=== PATIENT | male | born 1955 | race Hispanic/Latino ===

== ENCOUNTER 2019-03-17 07:54 | Inpatient (IN) | payer SELFPAY ==
[~2019-03-17] VITALS: Ht 175.3 cm; Wt 61.6 kg
[2019-03-17] MEDS ORDERED: OXYCODONE/ACETAMIN 5/325MG TAB ONE (08:35)
[2019-03-17] MEDS ORDERED: ZOSYN 3.375GM+NS 50ML 50 ML IV ONE (08:35)
[2019-03-17 09:03] LABS: BASOPHILS % (AUTO) 0.6 % (0.0-5.0); EOSINOPHILS % (AUTO) 0.5 % (0.0-8.0); HEMATOCRIT 37.1 % (42-54); LYMPHOCYTES % (AUTO) 18.2 % (21.0-51.0); MEAN CORPUSCULAR HEMOGLOBIN 36.7 pg (27.0-33.0); MEAN CORPUSCULAR HGB CONC 34.5 g/dL (32.0-36.0); MEAN CORPUSCULAR VOLUME 106.5 fL (79-99); MONOCYTES % (AUTO) 7.6 % (3.0-13.0); NEUTROPHILS % (AUTO) 73.1 % (40.0-77.0); NUCLEATED RED BLOOD CELLS 0.1 % (0.0-0.19); PLATELET COUNT (AUTO) 65 K/uL (130-400); RED BLOOD CELL COUNT(AUTO) 3.48 MIL/uL (4.50-6.20); RED CELL DISTRIBUTION WIDTH 12.8 % (11.0-15.5); WHITE BLOOD COUNT (AUTO) 5.7 K/uL (4.8-10.8)
[2019-03-17 09:09] LABS: APPEARANCE,URINE Clear (CLEAR); BILIRUBIN,URINE Small (NEGATIVE); COLOR,URINE Orange (YELLOW); GLUCOSE, URINE (UA) >=1000 mg/dL (NEGATIVE); KETONES,URINE 15 mg/dL (NEGATIVE); LEUKOCYTE ESTERASE ,URINE Trace (NEGATIVE); NITRATE,URINE Negative (NEGATIVE); OCCULT BLOOD,URINE Negative (NEGATIVE); PH,URINE 5.5 (5.0-8.0); PROTEIN,URINE Negative (NEGATIVE)
[2019-03-17 09:13] LABS: INR 1.01 (0.85-1.15); PARTIAL THROMBOPLASTIN TIME 28.5 SEC (26.3-35.5); PROTHROMBIN TIME 10.6 SEC (9.6-11.6)
[2019-03-17 09:14] LABS: CREATININE 0.7 mg/dL (0.5-1.5); POTASSIUM 3.7 mmol/L (3.5-5.1)
[2019-03-17 09:16] LABS: BILIRUBIN,TOTAL 1.7 mg/dL (0.2-1.0); TOTAL PROTEIN, SERUM 7.4 g/dL (6.0-8.3)
[2019-03-17 09:22] LABS: BACTERIA,URINE Few /HPF (None Seen); COARSE GRANULAR CASTS,URINE 0-2 /LPF (None Seen); MUCUS,URINE Moderate LPF (None Seen); RBC,URINE 0-1 /HPF (0-1); SQUAMOUS EPITHELIAL CELL,UR 0-2 /HPF (0-2)
[2019-03-17 09:30] LABS: PLATELET MORPHOLOGY COMMENT DECREASED
[2019-03-17] MEDS ORDERED: MORPHINE SULFATE 4 MG/1ML SYG ONE (10:13)
[2019-03-17] MEDS: MEROPENEM 500 MG VIAL IV SCH ×2 (11:30→21:51)
[2019-03-17] MEDS ORDERED: HYDRALAZINE HCL 20 MG/ML VIAL IV PRN (11:30)
[2019-03-17] MEDS ORDERED: ONDANSETRON HCL 4 MG/2 ML VIAL IV PRN (11:30)
[2019-03-17] MEDS ORDERED: ACETAMINOPHEN 325 MG TAB PO PRN ×2 (11:30)
[2019-03-17] MEDS ORDERED: VANCOMYCIN PROTOCOL PER PHARMACY IV PRN (11:30)
[2019-03-17] MEDS ORDERED: VANCOMYCIN 1GM+NS 250ML 250 ML IV SCH (11:30)
[2019-03-17] MEDS ORDERED: COMPOUND IV REFRIGERATED 1 EACH IVSOLN MISC PRN (12:30)
[2019-03-17] MEDS ORDERED: MEROPENEM 500 MG VIAL ONE (13:00)
[2019-03-17] MEDS ORDERED: VANCOMYCIN 1GM+NS 250ML 250 ML IV ONE (13:00)
[2019-03-17] MEDS ORDERED: SODIUM CHLORIDE 0.9% 50 ML IV ONE (13:00)
[2019-03-17 13:50] VITALS: BP 152/92
[2019-03-17] MEDS: MORPHINE SULFATE 2 MG/ML 1ML SYG IV PRN (15:52)
[2019-03-17 16:41] VITALS: BP 151/85
[2019-03-17] MEDS ORDERED: TETANUS/DIPHTHERIA TOXOID [ADULT] 0.5 ML VIAL IM SCH (16:45)
[2019-03-17] MEDS: INSULIN HUMULIN R 100 UNIT/ML 3ML SQ SCH ×2 (17:26→21:59)
[2019-03-17 19:16] VITALS: BP 152/93
[2019-03-17] MEDS ORDERED: SODIUM CHLORIDE 0.9% 500ML 500 ML IV ONE (21:34)
[2019-03-17] MEDS: VANCOMYCIN 1.25 GM in SODIUM CHLORIDE 0.9% 250 ML IV SCH (23:17)
[2019-03-17 23:18] VITALS: BP 148/87
[2019-03-17] MEDS: INSULIN GLARGINE 100 UNITS/ML 10 ML VIAL SQ SCH (23:30)
[2019-03-18] VITALS (15 sets, daily range): BP systolic 121–145; BP diastolic 65–82
[2019-03-18 05:47] LABS: HEMATOCRIT 32.9 % (42-54); MEAN CORPUSCULAR HEMOGLOBIN 36.2 pg (27.0-33.0); MEAN CORPUSCULAR HGB CONC 34.6 g/dL (32.0-36.0); MEAN CORPUSCULAR VOLUME 104.8 fL (79-99); PLATELET COUNT (AUTO) 69 K/uL (130-400); RED BLOOD CELL COUNT(AUTO) 3.14 MIL/uL (4.50-6.20); RED CELL DISTRIBUTION WIDTH 13.1 % (11.0-15.5); WHITE BLOOD COUNT (AUTO) 4.5 K/uL (4.8-10.8)
[2019-03-18 06:02] LABS: CREATININE 0.7 mg/dL (0.5-1.5); CRP QUANTITATIVE 45.2 mg/L (0.00-9.0); POTASSIUM 4.1 mmol/L (3.5-5.1)
[2019-03-18 06:03] LABS: HEMOGLOBIN A1C 7.9 % (4.0-6.0)
[2019-03-18] MEDS: INSULIN HUMULIN R 100 UNIT/ML 3ML SQ SCH ×3 (06:09→20:23)
[2019-03-18] MEDS: MEROPENEM 500 MG VIAL IV SCH ×3 (06:26→19:31)
[2019-03-18 06:52] LABS: ERYTHROCYTE SEDIMENTATION RATE 48 MM/HR (0-20)
--- NOTE | 2019-03-18 08:26 | NUR ---
PATIENT UPDATE PT SEEN BY DR. WASHINGTON LAST NIGHT FOR CONSULT ON THE RT FOOT WOUND, PT SEEN AND EXAMINED. WOUND DRESSED WITH THE BETADINE CAST, ORDERED A SOFT TISSUE ULTRASOUND WELL MRI ON THE RT FOOT AND SCHEDULED PATIENT FOR DEBRIDEMENT OF THE RT FOOT AT 1400 TODAY, CONSENT SECURED. NO COMPLAINTS OF PAIN VOICED OUT, SLEPT WELL OVERNIGHT.
[2019-03-18] MEDS: ENOXAPARIN SODIUM 40 MG/0.4 ML SYRINGE SQ SCH (09:00)
[2019-03-18] MEDS: VANCOMYCIN 1.25 GM in SODIUM CHLORIDE 0.9% 250 ML IV SCH ×2 (10:02→21:59)
--- NOTE | 2019-03-18 13:38 | NUR ---
DCP CM met with pt discussed dc plans. Pt is independent prior to admission, lives at home with spouse. Denies any equipments/services. Pt feels safe to go back home, still drives, spouse able to assist with transportation and needs as necessary. DC plan to home once stable. CM to cont to follow up. Addendum: 03/18/19 at 1346 by MCKENZIE CASTRO LVN CM Amended: Links added.
[2019-03-18] MEDS ORDERED: LIDOCAINE HCL 1% 20 ML VIAL ONE (14:38)
[2019-03-18] MEDS ORDERED: BUPIVACAINE/PF 0.5% 30ML VIAL ONE (14:38)
[2019-03-18] MEDS ORDERED: MIDAZOLAM HCL 1 MG/ML 2ML VIAL ONE (14:45)
[2019-03-18] MEDS ORDERED: FENTANYL CITRATE PF 50 MCG/1 ML 2ML VIAL ONE (14:45)
[2019-03-18] MEDS ORDERED: PROPOFOL 10 MG/ML 20ML VIAL IV ONE (14:45)
--- NOTE | 2019-03-18 18:00 | NUR ---
STATUS POST PROCEDURE. PATIENT AWAKE AND ALERT. DENIES ANY PAIN OR DISCOMFORT. NO SIGNS OF BLEEDING NOTED
[2019-03-18] MEDS: MORPHINE SULFATE 2 MG/ML 1ML SYG IV PRN (19:31)
[2019-03-18] MEDS: INSULIN GLARGINE 100 UNITS/ML 10 ML VIAL SQ SCH (20:23)
[2019-03-19] MEDS: MEROPENEM 500 MG VIAL IV SCH ×3 (03:31→19:57)
[2019-03-19 04:00] VITALS: BP 123/72
[2019-03-19 04:55] LABS: BASOPHILS % (AUTO) 0.5 % (0.0-5.0); EOSINOPHILS % (AUTO) 1.2 % (0.0-8.0); HEMATOCRIT 28.4 % (42-54); LYMPHOCYTES % (AUTO) 27.6 % (21.0-51.0); MEAN CORPUSCULAR HEMOGLOBIN 37.9 pg (27.0-33.0); MEAN CORPUSCULAR HGB CONC 36.3 g/dL (32.0-36.0); MEAN CORPUSCULAR VOLUME 104.4 fL (79-99); MONOCYTES % (AUTO) 10.8 % (3.0-13.0); NEUTROPHILS % (AUTO) 59.9 % (40.0-77.0); NUCLEATED RED BLOOD CELLS 0.1 % (0.0-0.19); PLATELET COUNT (AUTO) 57 K/uL (130-400); RED BLOOD CELL COUNT(AUTO) 2.72 MIL/uL (4.50-6.20); WHITE BLOOD COUNT (AUTO) 4.4 K/uL (4.8-10.8)
[2019-03-19 05:00] LABS: CREATININE 0.6 mg/dL (0.5-1.5); POTASSIUM 3.7 mmol/L (3.5-5.1)
[2019-03-19] MEDS: VANCOMYCIN 1.25 GM in SODIUM CHLORIDE 0.9% 250 ML IV SCH ×3 (05:04→21:52)
[2019-03-19] MEDS: INSULIN HUMULIN R 100 UNIT/ML 3ML SQ SCH ×4 (06:21→20:19)
--- NOTE | 2019-03-19 07:45 | NUR ---
ASSESSMENT: RECEIVED RESTING IN BED WITH RT FOOD DRESSING D&I, FOOT ELEVATED DENIES PAIN, PEDAL PULSES PALPATED. EXPLAINED POC AND UNDERSTANDING VERBALIZED, CALL [place] AT HIS SIDE. IV FLUIDS NS AT 20MLS AN HR. SITE HEALTHY.
--- NOTE | 2019-03-19 07:59 | NUR ---
assessment: DR WASHINGTON HERE AND ASSESSED RT FOOT WOUND. REMOVED DRESSING AND DID DRESSING CHANGE, APPLIED BETADINE DRESSING. RECOMMENDATION TO USE CRUTCHES FOR AMB. PT VERBALIZES UNDERSTANDING. DENIES PAIN.
[2019-03-19 08:00] VITALS: BP 137/78
[2019-03-19] MEDS: ENOXAPARIN SODIUM 40 MG/0.4 ML SYRINGE SQ SCH (08:54)
[2019-03-19] MEDS: CADEXOMER IODINE 40 GM GEL TP SCH (09:00)
[2019-03-19 11:52] VITALS: BP 132/74
--- NOTE | 2019-03-19 12:34 | NUR ---
ACTIVITY: PT PERSONNEL HERE TO WORK WITH PT ON CRUTCHES FOR AMB.
--- NOTE | 2019-03-19 12:40 | NUR ---
PT : PT PERSONNEL HERE WALKING PT IN HALLWAY WITH THE CRUTCHES.
--- NOTE | 2019-03-19 14:40 | NUR ---
ACTIVITY: AMB TO BR WITH CRUTCHES, STEADY GAIT.
[2019-03-19 16:00] VITALS: BP 166/102
--- NOTE | 2019-03-19 17:00 | NUR ---
HYGEINE: TOOK SHOWER.
--- NOTE | 2019-03-19 17:39 | NUR ---
ACTIVITY: AMB IN HALLWAY WITH CRUTCHES.
[2019-03-19 19:00] VITALS: BP 143/83
[2019-03-19] MEDS: INSULIN GLARGINE 100 UNITS/ML 10 ML VIAL SQ SCH (20:20)
[2019-03-20] VITALS (7 sets, daily range): BP systolic 120–158; BP diastolic 60–85
[2019-03-20] MEDS: MEROPENEM 500 MG VIAL IV SCH ×3 (03:15→22:16)
[2019-03-20] MEDS: VANCOMYCIN 1.25 GM in SODIUM CHLORIDE 0.9% 250 ML IV SCH ×3 (05:19→23:37)
[2019-03-20 05:44] LABS: BASOPHILS % (AUTO) 0.8 % (0.0-5.0); EOSINOPHILS % (AUTO) 1.5 % (0.0-8.0); HEMATOCRIT 28.6 % (42-54); LYMPHOCYTES % (AUTO) 32.7 % (21.0-51.0); MEAN CORPUSCULAR HGB CONC 35.6 g/dL (32.0-36.0); MEAN CORPUSCULAR VOLUME 103.8 fL (79-99); PLATELET COUNT (AUTO) 69 K/uL (130-400); RED BLOOD CELL COUNT(AUTO) 2.76 MIL/uL (4.50-6.20); RED CELL DISTRIBUTION WIDTH 12.8 % (11.0-15.5); WHITE BLOOD COUNT (AUTO) 3.5 K/uL (4.8-10.8)
[2019-03-20 05:56] LABS: CREATININE 0.6 mg/dL (0.5-1.5); POTASSIUM 3.6 mmol/L (3.5-5.1)
[2019-03-20] MEDS: INSULIN HUMULIN R 100 UNIT/ML 3ML SQ SCH ×4 (05:57→20:32)
--- NOTE | 2019-03-20 07:30 | NUR ---
DR. WASHINGTON HERE AND CHANGED HIS DRSG TO HIS RT FOOT WITH DR. ROMERO TO CONT ,CARE. TOLERATE WELL AND CALL LIGHT IN RE ACH.
[2019-03-20] MEDS: ENOXAPARIN SODIUM 40 MG/0.4 ML SYRINGE SQ SCH (08:46)
[2019-03-20] MEDS: CADEXOMER IODINE 40 GM GEL TP SCH (08:46)
--- NOTE | 2019-03-20 14:00 | NUR ---
ACTIVITY, PT UP AMBULATING , WELL . WITH NO WEIGHT BEARING TO HIS RT FOOT. DENIES ANY PAIN . CALL LIGHT IN REACH..
[2019-03-20] MEDS: INSULIN GLARGINE 100 UNITS/ML 10 ML VIAL SQ SCH (22:14)
[2019-03-21] MEDS: MEROPENEM 500 MG VIAL IV SCH ×3 (03:34→19:58)
[2019-03-21 04:07] VITALS: BP 131/61
[2019-03-21] MEDS: INSULIN HUMULIN R 100 UNIT/ML 3ML SQ SCH ×4 (05:34→20:35)
[2019-03-21] MEDS: VANCOMYCIN 1.25 GM in SODIUM CHLORIDE 0.9% 250 ML IV SCH ×3 (05:39→22:41)
[2019-03-21 06:07] LABS: HEMATOCRIT 26.9 % (42-54); MEAN CORPUSCULAR HEMOGLOBIN 38.1 pg (27.0-33.0); MEAN CORPUSCULAR HGB CONC 36.6 g/dL (32.0-36.0); MEAN CORPUSCULAR VOLUME 104.2 fL (79-99); NUCLEATED RED BLOOD CELLS 0.1 % (0.0-0.19); PLATELET COUNT (AUTO) 67 K/uL (130-400); RED BLOOD CELL COUNT(AUTO) 2.58 MIL/uL (4.50-6.20); RED CELL DISTRIBUTION WIDTH 13.1 % (11.0-15.5)
[2019-03-21 06:13] LABS: CREATININE 0.6 mg/dL (0.5-1.5); POTASSIUM 3.7 mmol/L (3.5-5.1)
[2019-03-21 07:07] LABS: BASOPHILS % (MANUAL) 2 % (0-2); EOSINOPHILS % (MANUAL) 1 % (1-6); LYMPHOCYTES % (MANUAL) 30 % (22-44); MAN.DIFF COMMENT-IMPRESSION MANUAL DIFFERENTIAL; MONOCYTES % (MANUAL) 13 % (2-9); PLATELET MORPHOLOGY COMMENT DECREASED; SEGMENTED NEUTROPHILS % 54 % (40-70)
[2019-03-21 07:30] VITALS: BP 143/75
[2019-03-21] MEDS: CADEXOMER IODINE 40 GM GEL TP SCH (09:00)
[2019-03-21] MEDS: ENOXAPARIN SODIUM 40 MG/0.4 ML SYRINGE SQ SCH (09:00)
[2019-03-21 11:00] VITALS: BP 145/77
--- NOTE | 2019-03-21 14:46 | NUR ---
CM Note: dcp to home; pt given crutches by PT CM met w/pt, tolerating ambulation w/crutches. PT provided pt w/own crutches. Safe to dc to home once MD clears. dcp to home w/spouse. Primary nurse aware. CM to cont to follow up.
[2019-03-21 16:00] VITALS: BP 147/76
--- NOTE | 2019-03-21 18:20 | NUR ---
DR. SHEARER HERE AND ASSESS HIS RT FOOT DRSG. WAS REMOVED AND PACKING, AND CLEANSE WITH THE SALINE. AND APPLICATION OF BETADINE CAST , SOAK APPLICATION ON , AND SECURE WITH KERLIX . AND WRAP WITH THE A CE WRAP. TOLERATE WELL, EDUCATION TEACH WAS PROVIDE TO AT THE BEDSIDE, .. PT UNDERSTOOD PLAN OF CARE AND DRSG CHANGES WILL BE DONE AT HOME, WANTS HE IS DISCHARGE HOME, QUESTION REVIEW .. TOLERATE WELL, CALL LIGHT INREACH
[2019-03-21 20:00] VITALS: BP 152/76
[2019-03-21] MEDS: INSULIN GLARGINE 100 UNITS/ML 10 ML VIAL SQ SCH (20:51)
[2019-03-22] VITALS: BP 121/65
[2019-03-22 04:00] VITALS: BP 138/79
[2019-03-22] MEDS: MEROPENEM 500 MG VIAL IV SCH ×3 (04:39→20:43)
[2019-03-22] MEDS: INSULIN HUMULIN R 100 UNIT/ML 3ML SQ SCH ×4 (05:30→20:42)
[2019-03-22] MEDS: VANCOMYCIN 1.25 GM in SODIUM CHLORIDE 0.9% 250 ML IV SCH ×2 (05:55→15:08)
[2019-03-22 07:50] VITALS: BP 139/71
[2019-03-22] MEDS: ENOXAPARIN SODIUM 40 MG/0.4 ML SYRINGE SQ SCH (09:00)
[2019-03-22] MEDS: CADEXOMER IODINE 40 GM GEL TP SCH (09:00)
[2019-03-22 11:36] VITALS: BP 143/68
[2019-03-22 16:20] VITALS: BP 153/77
--- NOTE | 2019-03-22 17:00 | NUR ---
AT THE BEDSIDE FOR DRSG CHANGE TO HIS RT FOOT . DRSG REMOVED . AND SITE CLEANSE WITH THE SALINE, PAD DRY WITH THE GAUZE, AND PACK IN WITH THE BEDATINE, GAUZE SOAK AN SECURE DSRG WITH THE KERLIX WRAP,AND SECURE WITHTHE REENA BANDAGE . NOTED NO FOUL SMELLING . GOOD PINK TISSUE, WAS ABLE TO COMPLETE DRSG WELL, , QUESTION, EDUCATIONS REVIEW. PT TOLERATE WELL, CALLL LIGHT IN REACH.
[2019-03-22 20:00] VITALS: BP 146/76
[2019-03-22] MEDS: INSULIN GLARGINE 100 UNITS/ML 10 ML VIAL SQ SCH (20:49)
[2019-03-22] MEDS: VANCOMYCIN 1.5 GM in SODIUM CHLORIDE 0.9% 250 ML IV SCH (20:54)
[2019-03-23] VITALS: BP 136/83
[2019-03-23] MEDS: MEROPENEM 500 MG VIAL IV SCH ×2 (04:00→12:02)
[2019-03-23 04:08] VITALS: BP 132/71
[2019-03-23] MEDS: VANCOMYCIN 1.5 GM in SODIUM CHLORIDE 0.9% 250 ML IV SCH ×2 (04:10→13:18)
[2019-03-23] MEDS: INSULIN HUMULIN R 100 UNIT/ML 3ML SQ SCH ×2 (05:52→11:30)
[2019-03-23 06:07] LABS: MEAN CORPUSCULAR HEMOGLOBIN 37.4 pg (27.0-33.0); MEAN CORPUSCULAR HGB CONC 36.3 g/dL (32.0-36.0); NUCLEATED RED BLOOD CELLS 0.1 % (0.0-0.19); PLATELET COUNT (AUTO) 78 K/uL (130-400); RED BLOOD CELL COUNT(AUTO) 2.52 MIL/uL (4.50-6.20); RED CELL DISTRIBUTION WIDTH 12.9 % (11.0-15.5); WHITE BLOOD COUNT (AUTO) 2.7 K/uL (4.8-10.8)
[2019-03-23 06:23] LABS: CREATININE 0.6 mg/dL (0.5-1.5); POTASSIUM 3.4 mmol/L (3.5-5.1)
[2019-03-23] MEDS: CADEXOMER IODINE 40 GM GEL TP SCH (07:06)
[2019-03-23 07:11] LABS: BAND NEUTROPHILS % (MANUAL) 1 % (0-2); LYMPHOCYTES % (MANUAL) 38 % (22-44); MAN.DIFF COMMENT-IMPRESSION MANUAL DIFFERENTIAL; MONOCYTES % (MANUAL) 8 % (2-9); PLATELET MORPHOLOGY COMMENT SLIGHTLY DECREASED; SEGMENTED NEUTROPHILS % 53 % (40-70)
[2019-03-23 08:00] VITALS: BP 125/83
--- NOTE | 2019-03-23 09:30 | NUR ---
DR. SHEARER HERE AND ASSESS HIS RT FOOT . WOUND, CONT WITH CARE. AND NO CHANGES PT TO FOLLOW WITH HIM AT [facility] DR. SHEARER THERE Q THU . OF EACH .WEEK
[2019-03-23 11:59] VITALS: BP 125/63
[2019-03-23] MEDS: ENOXAPARIN SODIUM 40 MG/0.4 ML SYRINGE SQ SCH (12:01)
[2019-03-23 16:00] VITALS: BP 141/64
--- NOTE | 2019-03-23 17:25 | NUR ---
PT DISCHARGE SUMMARY WAS REVIEW ,WITH PT. AND , ALREADY WAS ABLE TO DO THE WOUND , CARE DRSG. REFRESH,,, EDUCATIONS . ALSO. TO FOLLOW WITH DR. SHEARER THE FOOT DR. THAT DID THE SURGERY,, , EDUCATION ALSO ON DIABETIC, TEACHING, AND CARE. AND DIET,, ALSO PT WAS PROVIDED WITH DISCHARGE ANTIBOTICS GIVEN TO PT PER DR WILLSON, . SL TO HIS LFA WAS DC WITH NO REDNESS TO SITE ,AND A SM DRSG APPLICATION ON . . RT FOOT . WAS REMOVED AND WOUND PICTURES DONE, AND DSRG TEACHING WAS ADRESS AND WAS DID THE DRSG . DONE WELL. .
== END 2019-03-23 17:35 | disposition home or self-care (01) | DRG 571 ==
LOC: EDH 07:54 → EDHIP 07:55 → 3BH 13:33
PROVIDERS: ADMIT Internal Medicine; ATTEND Internal Medicine
PROC: 3E0234Z Introduction of Serum, Toxoid and Vaccine into Muscle, Percutaneous Approach (ICD-10-PCS; 2019-03-17)
PROC: 0JBQ0ZZ Excision of Right Foot Subcutaneous Tissue and Fascia, Open Approach (ICD-10-PCS; principal; 2019-03-18 14:45)
DX: S91.331A Puncture wound without foreign body, right foot, initial encounter (principal); E87.1 Hypo-osmolality and hyponatremia; L02.611 Cutaneous abscess of right foot; L03.115 Cellulitis of right lower limb; D69.6 Thrombocytopenia, unspecified; E11.42 Type 2 diabetes mellitus with diabetic polyneuropathy; E11.621 Type 2 diabetes mellitus with foot ulcer; E78.2 Mixed hyperlipidemia; I10 Essential (primary) hypertension; L97.529 Non-pressure chronic ulcer of other part of left foot with unspecified severity; Z91.19 Patient's noncompliance with other medical treatment and regimen; L97.519 Non-pressure chronic ulcer of other part of right foot with unspecified severity; B95.1 Streptococcus, group B, as the cause of diseases classified elsewhere; W45.0XXA Nail entering through skin, initial encounter; Y93.89 Activity, other specified; Y92.89 Other specified places as the place of occurrence of the external cause; Y99.8 Other external cause status; Z23 Encounter for immunization
CPT/HCPCS: 36415; 71045; 73630; 73718; 76882; 80048; 80053; 80061; 80202; 81001; 82948; 83036; 85025; 85027; 85610; 85651; 85730; 86140; 87070; 87076; 87077; 87186; 87205; 90714; 93005; 93925; G0378; J1650; J1815; J2185; J2250; J2270; J2543; J2704; J3010; J3370; J3490; J7030; J7040

== ENCOUNTER 2019-06-20 08:43 | Inpatient (IN) | payer OTHER ==
[2019-06-20] VITALS (7 sets, daily range): BP systolic 107–145; BP diastolic 55–88
[~2019-06-20] VITALS: Ht 167.6 cm; Wt 68.0 kg
[2019-06-20 09:20] LABS: BASOPHILS % (AUTO) 0.6 % (0.0-5.0); EOSINOPHILS % (AUTO) 0.2 % (0.0-8.0); HEMATOCRIT 41.2 % (42-54); LYMPHOCYTES % (AUTO) 18.3 % (21.0-51.0); MEAN CORPUSCULAR HEMOGLOBIN 35.8 pg (27.0-33.0); MEAN CORPUSCULAR HGB CONC 35.6 g/dL (32.0-36.0); MEAN CORPUSCULAR VOLUME 100.5 fL (79-99); MONOCYTES % (AUTO) 5.9 % (3.0-13.0); NUCLEATED RED BLOOD CELLS 0.2 % (0.0-0.19); PLATELET COUNT (AUTO) 59 K/uL (130-400); RED BLOOD CELL COUNT(AUTO) 4.09 MIL/uL (4.50-6.20); RED CELL DISTRIBUTION WIDTH 14.2 % (11.0-15.5); WHITE BLOOD COUNT (AUTO) 4.4 K/uL (4.8-10.8)
[2019-06-20] MEDS ORDERED: SODIUM CHLORIDE 0.9% 1000ML 1,000 ML IV ONE (09:22)
[2019-06-20] MEDS ORDERED: DILTIAZEM HCL 125 MG/25 ML VIAL IV ONE ×2 (09:22→09:30)
[2019-06-20 09:45] LABS: INR 1.23 (0.85-1.15); PARTIAL THROMBOPLASTIN TIME 25.5 SEC (26.3-35.5); PROTHROMBIN TIME 12.9 SEC (9.6-11.6)
[2019-06-20 10:07] LABS: MAGNESIUM 1.5 mg/dL (1.80-2.40)
[2019-06-20 10:18] LABS: CREATININE 0.9 mg/dL (0.5-1.5); POTASSIUM 5.1 mmol/L (3.5-5.1)
[2019-06-20] MEDS ORDERED: LORAZEPAM 2 MG/ML 1 ML VIAL ONE (10:38)
[2019-06-20] MEDS ORDERED: MAGNESIUM 2GM PREMIX 50ML 50 ML IV ONE (10:45)
[2019-06-20] MEDS ORDERED: DEXTROSE 50%-WATER 50 ML DISP.SYRIN IV PRN (11:30)
[2019-06-20] MEDS ORDERED: ONDANSETRON HCL 4 MG/2 ML VIAL IV PRN (11:30)
[2019-06-20] MEDS ORDERED: PHARMACY COMMUNICATION MISC PRN (11:30)
[2019-06-20] MEDS ORDERED: PROMETHAZINE HCL 25 MG TABLET PO PRN (11:30)
[2019-06-20] MEDS ORDERED: LORAZEPAM 2 MG/ML 1 ML VIAL IVP PRN (11:30)
[2019-06-20] MEDS ORDERED: GLUCAGON 1MG KIT 1 MG ML IM PRN (11:30)
[2019-06-20] MEDS ORDERED: DILTIAZEM HCL 125 MG/25 ML 125 MG in SODIUM CHLORIDE 0.9% 100 ML IV SCH (11:30)
[2019-06-20 12:10] LABS: ALBUMIN 3.8 g/dL (3.5-5.0); BILIRUBIN,DIRECT 0.5 mg/dL (0.0-0.3); BILIRUBIN,TOTAL 2.4 mg/dL (0.2-1.0); TOTAL PROTEIN, SERUM 7.9 g/dL (6.0-8.3)
[2019-06-20] MEDS ORDERED: DILTIAZEM HCL 60 MG TABLET ONE (12:23)
[2019-06-20] MEDS ORDERED: FAMOTIDINE 20MG TAB 20 MG TAB ONE (12:23)
[2019-06-20] MEDS ORDERED: ENOXAPARIN SODIUM 100 MG/1 ML SQ ONE (12:23)
--- NOTE | 2019-06-20 13:30 | NUR ---
ADMIT Received pt from Ed, report given by XU Lindsey. Awake, alert, and oriented x3. Denies any shortness of breath. Cardizem infusing at 15mg/hr, Banana bag at 100cc/hr as ordered. Instructed on use of call light for any assistance, verbalized understanding. Spouse at bedside.
[2019-06-20 14:01] LABS: AMPHET/METH SCREEN,URINE NEGATIVE (NEGATIVE); BARBITURATE SCREEN, URINE NEGATIVE (NEGATIVE); BENZODIAZEPINES SCREEN,URINE NEGATIVE (NEGATIVE); CANNABINOID SCREEN,URINE NEGATIVE (NEGATIVE); COCAINE SCREEN,URINE NEGATIVE (NEGATIVE); OPIATE SCREEN,URINE NEGATIVE (NEGATIVE); PHENCYCLIDINE SCREEN,URINE NEGATIVE (NEGATIVE)
[2019-06-20] MEDS ORDERED: GLIP5TAB11 PO (14:13)
[2019-06-20] MEDS ORDERED: METF-446 PO (14:13)
[2019-06-20] MEDS ORDERED: CHLORDIAZEPOXIDE HCL 25 MG CAP PO SCH (14:30)
[2019-06-20] MEDS: THIAMINE HCL 100 MG, FOLIC ACID 1 MG, M.V.I. IV [ADULT] 10 ML in SODIUM CHLORIDE 0.9% 1... IV SCH (16:45)
[2019-06-20] MEDS: INSULIN HUMULIN R 100 UNIT/ML 3ML SQ SCH ×2 (16:48→21:00)
--- NOTE | 2019-06-20 17:15 | NUR ---
MD VISIT Dr. Montero in to see pt, new orders received and will carry out.
[2019-06-20] MEDS ORDERED: PNEUMOCOCCAL VACCINE POLYVALENT 0.5 ML/VIAL [PPV] IM SCH (17:45)
[2019-06-20] MEDS ORDERED: FLU VACC QS2019-20 36MOS UP/PF 60 MCG/0.5 ML ML IM SCH (17:45)
[2019-06-20] MEDS: METFORMIN HCL 500 MG TABLET PO SCH (17:51)
[2019-06-20] MEDS: DILTIAZEM HCL 60 MG TABLET PO SCH ×2 (17:53→20:16)
[2019-06-20] MEDS: FAMOTIDINE/PF 20 MG/2 ML VIAL IV SCH (20:15)
[2019-06-21] VITALS (7 sets, daily range): BP systolic 101–126; BP diastolic 56–71
[2019-06-21] MEDS: LORAZEPAM 2 MG/ML 1 ML VIAL IVP PRN (03:49)
--- NOTE | 2019-06-21 03:52 | NUR ---
Pt. c/o of being restless and agitated,PRN Ativan 0.5 mg IV given. to bedside.Will continue to monitor pt.
[2019-06-21 04:59] LABS: BASOPHILS % (AUTO) 0.6 % (0.0-5.0); EOSINOPHILS % (AUTO) 2.1 % (0.0-8.0); HEMATOCRIT 31.7 % (42-54); LYMPHOCYTES % (AUTO) 36.5 % (21.0-51.0); MEAN CORPUSCULAR HEMOGLOBIN 36.4 pg (27.0-33.0); MEAN CORPUSCULAR HGB CONC 36.3 g/dL (32.0-36.0); MEAN CORPUSCULAR VOLUME 100.3 fL (79-99); MONOCYTES % (AUTO) 7.7 % (3.0-13.0); NEUTROPHILS % (AUTO) 53.1 % (40.0-77.0); NUCLEATED RED BLOOD CELLS 0.1 % (0.0-0.19); PLATELET COUNT (AUTO) 36 K/uL (130-400); RED BLOOD CELL COUNT(AUTO) 3.16 MIL/uL (4.50-6.20); RED CELL DISTRIBUTION WIDTH 14.1 % (11.0-15.5); WHITE BLOOD COUNT (AUTO) 2.4 K/uL (4.8-10.8)
[2019-06-21] MEDS ORDERED: CHLORDIAZEPOXIDE HCL 25 MG CAP PO ONE (05:00)
[2019-06-21 05:24] LABS: ALBUMIN 2.7 g/dL (3.5-5.0); BILIRUBIN,TOTAL 2.6 mg/dL (0.2-1.0); CREATININE 0.6 mg/dL (0.5-1.5); TOTAL PROTEIN, SERUM 5.9 g/dL (6.0-8.3)
[2019-06-21 05:27] LABS: POTASSIUM 2.7 mmol/L (3.5-5.1)
[2019-06-21 05:53] LABS: BASOPHILS % (MANUAL) 2 % (0-2); EOSINOPHILS % (MANUAL) 2 % (1-6); LYMPHOCYTES % (MANUAL) 48 % (22-44); MAN.DIFF COMMENT-IMPRESSION MANUAL DIFFERENTIAL; MONOCYTES % (MANUAL) 3 % (2-9); SEGMENTED NEUTROPHILS % 45 % (40-70)
[2019-06-21 05:55] LABS: PLATELET MORPHOLOGY COMMENT MARKED DECREASE
[2019-06-21] MEDS ORDERED: POTASSIUM CHLORIDE 20 MEQ ERTAB PO PRN (06:00)
--- NOTE | 2019-06-21 06:00 | NUR ---
Cardizem drip weaned off and pt already started on Cardizem tablet.Pt. is in and out afib in the 70's.Pt. remained stable, denies chest pain,palpitation and shortness of breath.
[2019-06-21] MEDS ORDERED: POTASSIUM CHLORIDE 20 MEQ ERTAB PO ONE (06:02)
[2019-06-21] MEDS: DILTIAZEM HCL 60 MG TABLET PO SCH ×2 (06:06→13:08)
[2019-06-21] MEDS: INSULIN HUMULIN R 100 UNIT/ML 3ML SQ SCH ×4 (06:13→21:46)
[2019-06-21] MEDS: FAMOTIDINE/PF 20 MG/2 ML VIAL IV SCH ×2 (08:29→21:56)
[2019-06-21] MEDS: GLIPIZIDE 5 MG TABLET PO SCH (08:29)
[2019-06-21] MEDS: METFORMIN HCL 500 MG TABLET PO SCH ×2 (08:29→16:54)
[2019-06-21] MEDS: ENOXAPARIN SODIUM 80 MG/0.8 ML SQ SCH (08:30)
[2019-06-21] MEDS ORDERED: DILTIAZEM HCL 60 MG TABLET PO SCH (09:00)
[2019-06-21] MEDS: THIAMINE HCL 100 MG, FOLIC ACID 1 MG, M.V.I. IV [ADULT] 10 ML in SODIUM CHLORIDE 0.9% 1... IV SCH (11:42)
[2019-06-21] MEDS: CHLORDIAZEPOXIDE HCL 25 MG CAP PO PRN (12:12)
--- NOTE | 2019-06-21 16:22 | NUR ---
DCP CM met with pt discussed dc plans. Pt is independent prior to admission, lives at home with spouse. Pt states he has crutches he uses on ambulation. Denies any equipments/services. Pt feels safe to go back home, spouse able to assist with transportation and needs as necessary. DC plan to home once stable. CM to cont to follow up. Addendum: 06/21/19 at 1623 by MCKENZIE CASTRO LVN CM Amended: Links added.
[2019-06-22 04:03] VITALS: BP 115/69
[2019-06-22] MEDS: CHLORDIAZEPOXIDE HCL 25 MG CAP PO PRN ×2 (05:17→08:04)
[2019-06-22 05:53] LABS: HEMATOCRIT 34.2 % (42-54); MEAN CORPUSCULAR HEMOGLOBIN 35.6 pg (27.0-33.0); MEAN CORPUSCULAR HGB CONC 34.7 g/dL (32.0-36.0); MEAN CORPUSCULAR VOLUME 102.5 fL (79-99); NUCLEATED RED BLOOD CELLS 0.1 % (0.0-0.19); PLATELET COUNT (AUTO) 37 K/uL (130-400); RED BLOOD CELL COUNT(AUTO) 3.34 MIL/uL (4.50-6.20)
[2019-06-22 06:12] LABS: CREATININE 0.7 mg/dL (0.5-1.5); MAGNESIUM 1.2 mg/dL (1.80-2.40)
[2019-06-22 06:15] LABS: POTASSIUM 2.9 mmol/L (3.5-5.1)
[2019-06-22] MEDS ORDERED: MAGNESIUM 2GM PREMIX 50ML 50 ML IV ONE (06:29)
[2019-06-22] MEDS: INSULIN HUMULIN R 100 UNIT/ML 3ML SQ SCH ×4 (06:36→21:00)
[2019-06-22 07:30] VITALS: BP 118/71
[2019-06-22] MEDS: METFORMIN HCL 500 MG TABLET PO SCH ×2 (07:53→16:04)
[2019-06-22] MEDS: GLIPIZIDE 5 MG TABLET PO SCH (07:54)
[2019-06-22] MEDS: ENOXAPARIN SODIUM 80 MG/0.8 ML SQ SCH (07:58)
[2019-06-22] MEDS: FAMOTIDINE 20MG TAB 20 MG TAB PO SCH ×2 (08:04→20:59)
[2019-06-22 08:12] LABS: HEPATITIS A ANTIBODY IGM Negative (Negative); HEPATITIS B CORE IGM Negative (Negative); HEPATITIS Bs ANTIGEN SCREEN P Negative (Negative)
[2019-06-22] MEDS: METOPROLOL TARTRATE 50 MG TAB PO SCH ×3 (08:45→20:59)
[2019-06-22] MEDS ORDERED: DILTIAZEM HCL 180 MG CAP.SR.24H PO SCH (09:00)
[2019-06-22] MEDS: MAGNESIUM 2GM PREMIX 50ML 50 ML IV PRN (09:29)
[2019-06-22] MEDS: POTASSIUM CHLORIDE 10% ELIXIR 20 MEQ/15 ML UDCUP PO PRN ×3 (09:30→14:04)
[2019-06-22 11:00] VITALS: BP 122/78
[2019-06-22] MEDS: THIAMINE HCL 100 MG, FOLIC ACID 1 MG, M.V.I. IV [ADULT] 10 ML in SODIUM CHLORIDE 0.9% 1... IV SCH (11:27)
[2019-06-22] MEDS: POTASSIUM CHLORIDE 20MEQ/100ML 100 ML IV PRN (14:04)
[2019-06-22] MEDS: LIDOCAINE HCL-MPF 1% 2ML VIAL IV PRN (14:05)
[2019-06-22 16:00] VITALS: BP 120/60
[2019-06-22 19:40] VITALS: BP 120/56
[2019-06-22] MEDS: LORAZEPAM 2 MG/ML 1 ML VIAL IVP PRN (21:05)
[2019-06-22 23:35] VITALS: BP 101/62
[2019-06-23 04:00] VITALS: BP 103/53
[2019-06-23 04:44] LABS: CREATININE 0.7 mg/dL (0.5-1.5); MAGNESIUM 1.7 mg/dL (1.80-2.40); POTASSIUM 3.7 mmol/L (3.5-5.1)
[2019-06-23] MEDS: METOPROLOL TARTRATE 50 MG TAB PO SCH (05:35)
[2019-06-23] MEDS: POTASSIUM CHLORIDE 20MEQ/100ML 100 ML IV PRN (06:49)
[2019-06-23] MEDS: LIDOCAINE HCL-MPF 1% 2ML VIAL IV PRN (06:50)
[2019-06-23] MEDS: INSULIN HUMULIN R 100 UNIT/ML 3ML SQ SCH ×3 (06:52→16:30)
[2019-06-23 07:45] VITALS: BP 111/87
[2019-06-23] MEDS: FAMOTIDINE 20MG TAB 20 MG TAB PO SCH (08:49)
[2019-06-23] MEDS: GLIPIZIDE 5 MG TABLET PO SCH (08:49)
[2019-06-23] MEDS: METFORMIN HCL 500 MG TABLET PO SCH ×2 (08:49→16:39)
[2019-06-23] MEDS: POTASSIUM CHLORIDE 10% ELIXIR 20 MEQ/15 ML UDCUP PO PRN ×2 (08:50→11:35)
[2019-06-23] MEDS: ENOXAPARIN SODIUM 80 MG/0.8 ML SQ SCH (09:00)
[2019-06-23] MEDS ORDERED: METOPROLOL TARTRATE 50 MG TAB PO SCH (09:30)
[2019-06-23 11:02] VITALS: BP 125/70
[2019-06-23] MEDS: MAGNESIUM 2GM PREMIX 50ML 50 ML IV PRN ×2 (11:36→14:20)
[2019-06-23 16:00] VITALS: BP 121/62
[2019-06-23] MEDS ORDERED: FURO20TA4 PO (16:18)
[2019-06-23] MEDS ORDERED: METO50 PO (16:18)
[2019-06-23] MEDS ORDERED: PANT40TA25 PO (16:18)
--- NOTE | 2019-06-23 18:23 | NUR ---
MD NOTIFICATION DR Jabier ARCOS NOTIFIED OF CT ABD RESULTS. ORDER RECEIVED & ENTERED TO DC PT HOME.
--- NOTE | 2019-06-23 18:35 | NUR ---
DISCHARGE VERBAL & WRITTEN DISCHARGE INSTRUCTIONS REVIEWED & GIVEN TO PT & SPOUSE. QUESTIONS ENCOURAGED & CLARIFIED. PROPER CARE & MGT OF AFIB REVIEWED. ALCOHOL ABUSE & WITHDRAWAL REVIEWED. NEW PRESCRIBED MEDICATIONS REVIEWED. PRESCRIPTION GIVEN TO PT. SIGNED PRESCRIPTION PLACED IN CHART. F/U OFFICE INFO & APPT INFO REVIEWED W/PT. TELE WILBER REMOVED EARLIER. IV DISCONTINUED. PT & SPOUSE TO GATHER PERSONAL BELONGINGS. WILL NOTIFY STAFF WHEN READY TO BE TAKEN TO PRIVATE VEHICLE.
--- NOTE | 2019-06-23 19:00 | NUR ---
DISCHARGE PT TAKEN TO PRIVATE VEHICLE VIA WC BY KATE PCP, ACCOMPANIED BY SPOUSE. NO DISTRESS NOTED.
== END 2019-06-23 19:00 | disposition home or self-care (01) | DRG 309 ==
LOC: EDH 08:43 → OBSVTOIN 08:44 → EDHIP 08:44 → 4CH 13:13
PROVIDERS: ADMIT Family Medicine; ATTEND Family Medicine
PROC: 3E0234Z Introduction of Serum, Toxoid and Vaccine into Muscle, Percutaneous Approach (ICD-10-PCS; principal; 2019-06-20)
PROC: 3E02340 Introduction of Influenza Vaccine into Muscle, Percutaneous Approach (ICD-10-PCS; 2019-06-20)
DX: I48.91 Unspecified atrial fibrillation (principal); F10.239 Alcohol dependence with withdrawal, unspecified; D61.818 Other pancytopenia; D68.9 Coagulation defect, unspecified; L03.115 Cellulitis of right lower limb; E83.42 Hypomagnesemia; E11.65 Type 2 diabetes mellitus with hyperglycemia; E11.51 Type 2 diabetes mellitus with diabetic peripheral angiopathy without gangrene; E56.9 Vitamin deficiency, unspecified; E78.2 Mixed hyperlipidemia; E87.6 Hypokalemia; F32.9 Major depressive disorder, single episode, unspecified; F41.9 Anxiety disorder, unspecified; I42.9 Cardiomyopathy, unspecified; K76.9 Liver disease, unspecified; R26.2 Difficulty in walking, not elsewhere classified; D64.9 Anemia, unspecified; Z23 Encounter for immunization
CPT/HCPCS: 36415; 71045; 74150; 80048; 80053; 80074; 80076; 80305; 82140; 82550; 82607; 82746; 82948; 83690; 83735; 83880; 84425; 84445; 84484; 85025; 85027; 85610; 85730; 90732; 93005; 93306; 99291; G0378; G0480; J1650; J1815; J2060; J3411; J3475; J3480; J3490; J7030; Q2035

== ENCOUNTER 2019-09-23 23:50 | Emergency (ER) | payer OTHER ==
[~2019-09-23 23:50] MED LIST: FURO20TA4 PO; GLIP5TAB11 PO; METF-446 PO; METO50 PO; PANT40TA25 PO
[2019-09-24] MEDS ORDERED: KETOROLAC TROMETHAMINE 30MG/ML ONE (01:03)
[2019-09-24] MEDS ORDERED: HYDROCODONE/ACETAMINOPHEN 10/325 MG TAB ONE (02:40)
== END 2019-09-24 03:22 | disposition home or self-care (01) ==
LOC: EDH 23:50
DX: S92.902A Unspecified fracture of left foot, initial encounter for closed fracture (principal); S43.402A Unspecified sprain of left shoulder joint, initial encounter; E11.9 Type 2 diabetes mellitus without complications; Z98.890 Other specified postprocedural states; V19.9XXA Pedal cyclist (driver) (passenger) injured in unspecified traffic accident, initial encounter; Y93.I9 Activity, other involving external motion; Y92.89 Other specified places as the place of occurrence of the external cause; Y99.8 Other external cause status
CPT/HCPCS: 29515; 73030; 73610; 73630; 96372; 99284; J1885

== ENCOUNTER 2019-09-30 22:20 | Inpatient (IN) | payer OTHER ==
[~2019-09-30] VITALS: Ht 175.3 cm; Wt 74.1 kg
[2019-09-30] MEDS ORDERED: CEFTRIAXONE SODIUM 2 GM VIAL ONE (23:00)
[2019-09-30] MEDS ORDERED: SODIUM CHLORIDE 0.9% 1000ML 1,000 ML IV ONE (23:01)
[2019-09-30 23:06] LABS: BASOPHILS % (AUTO) 0.1 % (0.0-5.0); EOSINOPHILS % (AUTO) 0.1 % (0.0-8.0); LYMPHOCYTES % (AUTO) 7.7 % (21.0-51.0); MEAN CORPUSCULAR HEMOGLOBIN 32.8 pg (27.0-33.0); MEAN CORPUSCULAR HGB CONC 35.5 g/dL (32.0-36.0); MEAN CORPUSCULAR VOLUME 92.4 fL (79-99); NEUTROPHILS % (AUTO) 86.3 % (40.0-77.0); PLATELET COUNT (AUTO) 121 K/uL (130-400); RED BLOOD CELL COUNT(AUTO) 3.57 MIL/uL (4.50-6.20)
[2019-09-30 23:16] LABS: INR 1.3 (0.85-1.15); PARTIAL THROMBOPLASTIN TIME 31.9 SEC (26.3-35.5); PROTHROMBIN TIME 13.5 SEC (9.6-11.6)
[2019-09-30 23:21] LABS: ALANINE AMINOTRANSFERASE 75 U/L (12-78); ALBUMIN 2.3 g/dL (3.5-5.0); ALCOHOL, BLOOD < 3 mg/dL (0-10); AMMONIA 11 umol/L (11-32); ASPARTATE AMINOTRANSFERASE 71 U/L (10-37); BILIRUBIN,TOTAL 1.8 mg/dL (0.2-1.0); CARBON DIOXIDE 26 mmol/L (21-32); CREATININE 0.3 mg/dL (0.5-1.5); GLOMERULAR FILTR. RATE CALC 322 mL/min (>60); GLUCOSE,RANDOM 91 mg/dL (70-105); POTASSIUM 4.2 mmol/L (3.5-5.1); SODIUM SERUM 123 mmol/L (136-145); TOTAL PROTEIN, SERUM 6.2 g/dL (6.0-8.3); UREA NITROGEN, BLOOD 19 mg/dL (7-18)
[2019-09-30 23:39] LABS: CHLORIDE 90 mmol/L (101-111)
[2019-10-01] MEDS ORDERED: IOHEXOL-350 75 ML VIAL IV ONE (00:25)
[2019-10-01 00:39] LABS: APPEARANCE,URINE Clear (CLEAR); BILIRUBIN,URINE Small (NEGATIVE); COLOR,URINE Dark Yellow (YELLOW); GLUCOSE, URINE (UA) Negative (NEGATIVE); KETONES,URINE Trace mg/dL (NEGATIVE); LEUKOCYTE ESTERASE ,URINE Trace (NEGATIVE); NITRATE,URINE Negative (NEGATIVE); OCCULT BLOOD,URINE Small (NEGATIVE); PROTEIN,URINE Trace mg/dL (NEGATIVE); UROBILINOGEN,URINE >=8.0 mg/dL (0.2-1.0)
[2019-10-01 01:03] LABS: BACTERIA,URINE Few /HPF (None Seen); MUCUS,URINE Few LPF (None Seen)
[2019-10-01 01:18] LABS: AMPHET/METH SCREEN,URINE NEGATIVE (NEGATIVE); BARBITURATE SCREEN, URINE NEGATIVE (NEGATIVE); BENZODIAZEPINES SCREEN,URINE NEGATIVE (NEGATIVE); CANNABINOID SCREEN,URINE NEGATIVE (NEGATIVE); COCAINE SCREEN,URINE NEGATIVE (NEGATIVE); OPIATE SCREEN,URINE POSITIVE (NEGATIVE); PHENCYCLIDINE SCREEN,URINE NEGATIVE (NEGATIVE)
[2019-10-01] MEDS ORDERED: ONDANSETRON HCL 4 MG/2 ML VIAL IV PRN (03:00)
[2019-10-01] MEDS ORDERED: VANCOMYCIN 1GM+NS 250ML 250 ML IV SCH (03:00)
[2019-10-01] MEDS ORDERED: LACTULOSE 20 GM/30 ML UDCUP PO PRN (03:00)
[2019-10-01] MEDS ORDERED: ACETAMINOPHEN 325 MG TAB PO PRN ×2 (03:00)
[2019-10-01] MEDS ORDERED: VANCOMYCIN PROTOCOL PER PHARMACY IV SCH (03:00)
[2019-10-01] MEDS ORDERED: ZOSYN 3.375GM+NS 50ML 50 ML IV ONE (03:42)
[2019-10-01] MEDS ORDERED: VANCOMYCIN 1GM+NS 250ML 250 ML IV ONE (03:42)
[2019-10-01 03:57] LABS: BASOPHILS % (AUTO) 0.2 % (0.0-5.0); EOSINOPHILS % (AUTO) 0.1 % (0.0-8.0); HEMATOCRIT 29.2 % (42-54); LYMPHOCYTES % (AUTO) 7.4 % (21.0-51.0); MEAN CORPUSCULAR HEMOGLOBIN 32.8 pg (27.0-33.0); MEAN CORPUSCULAR VOLUME 91.3 fL (79-99); MONOCYTES % (AUTO) 4.1 % (3.0-13.0); NEUTROPHILS % (AUTO) 87.3 % (40.0-77.0); PLATELET COUNT (AUTO) 104 K/uL (130-400); RED CELL DISTRIBUTION WIDTH 12.1 % (11.0-15.5); WHITE BLOOD COUNT (AUTO) 15.2 K/uL (4.8-10.8)
[2019-10-01 04:10] LABS: CREATININE 0.7 mg/dL (0.5-1.5); POTASSIUM 3.9 mmol/L (3.5-5.1)
[2019-10-01 05:00] VITALS: BP 115/79
[2019-10-01] MEDS: ZOSYN 3.375GM+NS 50ML 50 ML IV SCH ×3 (05:00→20:40)
[2019-10-01] MEDS ORDERED: COMPOUND IV REFRIGERATED 1 EACH IVSOLN MISC PRN (07:30)
[2019-10-01 07:32] VITALS: BP 122/79
[2019-10-01] MEDS ORDERED: VANCOMYCIN 1.25 GM in SODIUM CHLORIDE 0.9% 250 ML IV SCH (09:00)
--- NOTE | 2019-10-01 11:17 | NUR ---
call back from dr gupta , aware of consult will see patient tomorrow , Dr myles ,also aware of consult
[2019-10-01 11:46] VITALS: BP 127/74
[2019-10-01] MEDS ORDERED: PARO7.5C2 PO (12:37)
[2019-10-01] MEDS ORDERED: ACET1TAB12 PO (12:37)
[2019-10-01] MEDS ORDERED: LACTULOSE 20 GM/30 ML UDCUP PO SCH ×2 (12:45→21:00)
--- NOTE | 2019-10-01 13:05 | NUR ---
PATIENT TOOK METOPROLOL 100MG X 1 WITH HIS HOME MEDICATIONS
[2019-10-01] MEDS: FAMOTIDINE 20MG TAB 20 MG TAB PO SCH ×2 (14:01→20:41)
[2019-10-01 14:40] LABS: CREATININE,URINE RANDOM 130 mg/dL (30-135); SODIUM,URINE RANDOM < 15 mmol/l (40-220)
[2019-10-01] MEDS: METHYLPREDNISOLONE SOD SUCC 40MG/ML 1ML IVP SCH (15:30)
[2019-10-01] MEDS ORDERED: METHYLPREDNISOLONE SOD SUCC 40MG/ML 1ML IVP ONE (15:30)
[2019-10-01 16:00] VITALS: BP 106/73
--- NOTE | 2019-10-01 17:44 | NUR ---
D/C PLAN CM spoke to pt and spouse regarding d/c planning. Pt lives with spouse. Spouse assists in care as needed. States pt has been mostly w/c bound. CM provided community resources packet. Plan to home. CM to f/u. Addendum: 10/01/19 at 1745 by VALERIE JAFFE CM Amended: Links added.
[2019-10-01 18:16] LABS: THYROID STIMULATING HORMONE 0.57 uIU/mL (0.36-3.74); URIC ACID 1.4 mg/dL (2.6-7.2)
[2019-10-01 20:00] VITALS: BP 119/76
[2019-10-01] MEDS: VANCOMYCIN 1.25 GM in SODIUM CHLORIDE 0.9% 250 ML IV SCH (20:40)
[2019-10-01] MEDS: METOPROLOL TARTRATE 50 MG TAB PO SCH (20:48)
[2019-10-01 23:45] VITALS: BP 122/83
--- NOTE | 2019-10-02 00:50 | NUR ---
WITHDRAWAL SYMPTOMS Pt started on the CIWA scoring and scored 22 at 1999, pt a known alcoholic, stated that he hasn't slept for more than 24 hrs, hallucinates and stated that he's hearing things talking to him, seizure precaution, no standing nor prn orders. Call placed to Hospitalist group.
[2019-10-02] MEDS ORDERED: PHARMACY COMMUNICATION MISC PRN (01:45)
[2019-10-02] MEDS ORDERED: LORAZEPAM 2 MG/ML 1 ML VIAL IVP PRN ×2 (01:45)
[2019-10-02] MEDS ORDERED: PROMETHAZINE HCL 25 MG TABLET PO PRN (01:45)
[2019-10-02] MEDS ORDERED: CHLORDIAZEPOXIDE HCL 25 MG CAP PO PRN ×2 (01:45)
[2019-10-02] MEDS ORDERED: LORAZEPAM 2 MG/ML 1 ML VIAL ONE (02:12)
--- NOTE | 2019-10-02 02:30 | NUR ---
PATIENT UPDATE Jade Hubbard OUTPATIENT COORDINATOR for the Hospitalist group in the floor at 0135 in response to the call. Made aware about the pt's delirium tremens with a score of 22 at 2000 but getting worst by mn because he was already trying to get one leg out of the siderail, very confused. OUTPATIENT COORDINATOR also made aware of the blood cultures positive for gm positive cocci 2/2, already on both the Zosyn and Vancomycin. Patient given Ativan 2 mg slow iv push for increasing agitation and confusion, at the bedside, continues on seizure precaution.
[2019-10-02 03:54] VITALS: BP 127/62
[2019-10-02 04:35] LABS: BASOPHILS % (AUTO) 0.1 % (0.0-5.0); HEMATOCRIT 31.6 % (42-54); LYMPHOCYTES % (AUTO) 8.2 % (21.0-51.0); MEAN CORPUSCULAR HEMOGLOBIN 32.2 pg (27.0-33.0); MEAN CORPUSCULAR HGB CONC 34.8 g/dL (32.0-36.0); MEAN CORPUSCULAR VOLUME 92.4 fL (79-99); NEUTROPHILS % (AUTO) 88.8 % (40.0-77.0); PLATELET COUNT (AUTO) 125 K/uL (130-400); RED BLOOD CELL COUNT(AUTO) 3.42 MIL/uL (4.50-6.20); RED CELL DISTRIBUTION WIDTH 12.1 % (11.0-15.5); WHITE BLOOD COUNT (AUTO) 13.7 K/uL (4.8-10.8)
[2019-10-02 04:54] LABS: CREATININE 0.6 mg/dL (0.5-1.5); POTASSIUM 4.3 mmol/L (3.5-5.1); URIC ACID 1.3 mg/dL (2.6-7.2)
[2019-10-02] MEDS: ZOSYN 3.375GM+NS 50ML 50 ML IV SCH ×3 (05:05→20:14)
--- NOTE | 2019-10-02 06:30 | NUR ---
MED EFFECT Pt finally calmed down and went to sleep after the ativan was given. Snoring loud but no sleep apnea, O2 sat bet 98 to 99% at room air. happy because she said he finally slept, stated that he was so anxious that he hasn't slept for more than 24 hrs.
[2019-10-02 08:00] VITALS: BP 110/74
[2019-10-02] MEDS: LACTULOSE 20 GM/30 ML UDCUP PO SCH ×4 (09:00→20:14)
[2019-10-02] MEDS: METOPROLOL TARTRATE 50 MG TAB PO SCH ×2 (09:49→20:14)
[2019-10-02] MEDS: FAMOTIDINE 20MG TAB 20 MG TAB PO SCH ×2 (09:49→20:14)
[2019-10-02] MEDS: THIAMINE HCL 100 MG/ML 2ML VIAL IVP SCH (09:49)
[2019-10-02] MEDS: VANCOMYCIN 1.25 GM in SODIUM CHLORIDE 0.9% 250 ML IV SCH ×2 (09:51→21:13)
[2019-10-02 12:00] VITALS: BP 118/61
--- NOTE | 2019-10-02 15:00 | NUR ---
DR SAVAGE MADE ROUNDS , REMOVED SPLINT FOR ASSESSMENT , EXTREMITY WARM , GOOD PULSES , SPLINT REAPPLIED BY MD . ON RT FOOT REMAINS ALSO WITH GOOD PULSES ,WARM , CAPILLARY REFILL LESS THAN 3 SEC
[2019-10-02] MEDS: METHYLPREDNISOLONE SOD SUCC 40MG/ML 1ML IVP SCH (15:30)
[2019-10-02 16:00] VITALS: BP 115/75
[2019-10-02 20:01] VITALS: BP 123/76
[2019-10-02] MEDS ORDERED: VANCOMYCIN 1GM+NS 250ML 250 ML IV ONE (20:08)
[2019-10-03] VITALS (7 sets, daily range): BP systolic 123–153; BP diastolic 72–94
[2019-10-03 05:08] LABS: BASOPHILS % (AUTO) 0.2 % (0.0-5.0); EOSINOPHILS % (AUTO) 0.2 % (0.0-8.0); LYMPHOCYTES % (AUTO) 11.9 % (21.0-51.0); MEAN CORPUSCULAR HEMOGLOBIN 32.5 pg (27.0-33.0); MEAN CORPUSCULAR HGB CONC 35.2 g/dL (32.0-36.0); MEAN CORPUSCULAR VOLUME 92.5 fL (79-99); MONOCYTES % (AUTO) 4.9 % (3.0-13.0); NEUTROPHILS % (AUTO) 81.7 % (40.0-77.0); PLATELET COUNT (AUTO) 150 K/uL (130-400); RED BLOOD CELL COUNT(AUTO) 3.35 MIL/uL (4.50-6.20); RED CELL DISTRIBUTION WIDTH 12.4 % (11.0-15.5); WHITE BLOOD COUNT (AUTO) 11.4 K/uL (4.8-10.8)
[2019-10-03] MEDS: ZOSYN 3.375GM+NS 50ML 50 ML IV SCH ×3 (05:08→20:01)
[2019-10-03 05:32] LABS: CREATININE 0.6 mg/dL (0.5-1.5); POTASSIUM 3.8 mmol/L (3.5-5.1)
[2019-10-03] MEDS: INSULIN HUMULIN R 100 UNIT/ML 3ML SQ SCH ×4 (07:30→21:00)
[2019-10-03] MEDS: VANCOMYCIN 1.25 GM in SODIUM CHLORIDE 0.9% 250 ML IV SCH (09:08)
[2019-10-03] MEDS: THIAMINE HCL 100 MG/ML 2ML VIAL IVP SCH (09:09)
[2019-10-03] MEDS: METOPROLOL TARTRATE 50 MG TAB PO SCH ×2 (09:09→20:01)
[2019-10-03] MEDS: FAMOTIDINE 20MG TAB 20 MG TAB PO SCH ×2 (09:09→20:01)
[2019-10-03] MEDS: LACTULOSE 20 GM/30 ML UDCUP PO SCH ×3 (09:09→20:14)
[2019-10-03] MEDS: VANCOMYCIN 1GM+NS 250ML 250 ML IV SCH ×2 (13:33→23:13)
[2019-10-03] MEDS: ENOXAPARIN SODIUM 40 MG/0.4 ML SYRINGE SQ SCH (17:36)
[2019-10-03] MEDS: FUROSEMIDE 10 MG/ML 2ML VIAL IV SCH (18:21)
--- NOTE | 2019-10-03 19:58 | NUR ---
AJ aware of pt's heart rate will give dose of 100 mg po metoprolol now
[2019-10-03] MEDS: DILTIAZEM HCL 5 MG/ML 10 ML VIAL IV SCH (22:15)
[2019-10-03] MEDS ORDERED: DILTIAZEM HCL 5 MG/ML 5 ML VIAL IVP ONE (22:20)
--- NOTE | 2019-10-03 22:24 | NUR ---
ONLY GIVEN 5 MG OF CARDIZEM ORDERED
--- NOTE | 2019-10-03 23:43 | NUR ---
FULL REPORT GIVEN TO [facility] SECOND FLOOR
[2019-10-03] MEDS ORDERED: PHARMACY COMMUNICATION MISC SCH (23:45)
[2019-10-03] MEDS ORDERED: DILTIAZEM HCL 125 MG/25 ML 125 MG in SODIUM CHLORIDE 0.9% 100 ML IV SCH (23:45)
--- NOTE | 2019-10-03 23:53 | NUR ---
PT TRANSFERRED TO SECOND FLOOR FAMILY AT BED SIDE PT CURRENTLY SLEEPING
[2019-10-04] VITALS (7 sets, daily range): BP systolic 115–133; BP diastolic 70–89
[2019-10-04] MEDS ORDERED: SODIUM CHLORIDE 0.9% 100 ML IV ONE (00:28)
[2019-10-04] MEDS ORDERED: DILTIAZEM HCL 125 MG/25 ML VIAL IV ONE (00:28)
[2019-10-04 04:09] LABS: BASOPHILS % (AUTO) 0.1 % (0.0-5.0); EOSINOPHILS % (AUTO) 0.4 % (0.0-8.0); LYMPHOCYTES % (AUTO) 16.7 % (21.0-51.0); MEAN CORPUSCULAR HEMOGLOBIN 32.1 pg (27.0-33.0); MEAN CORPUSCULAR HGB CONC 34.8 g/dL (32.0-36.0); MEAN CORPUSCULAR VOLUME 92.3 fL (79-99); MONOCYTES % (AUTO) 5.1 % (3.0-13.0); NEUTROPHILS % (AUTO) 76.7 % (40.0-77.0); PLATELET COUNT (AUTO) 137 K/uL (130-400); RED BLOOD CELL COUNT(AUTO) 3.36 MIL/uL (4.50-6.20); RED CELL DISTRIBUTION WIDTH 12.1 % (11.0-15.5); WHITE BLOOD COUNT (AUTO) 7.8 K/uL (4.8-10.8)
[2019-10-04] MEDS: ZOSYN 3.375GM+NS 50ML 50 ML IV SCH ×3 (04:21→21:37)
[2019-10-04 04:35] LABS: ALBUMIN 1.8 g/dL (3.5-5.0); BILIRUBIN,TOTAL 0.9 mg/dL (0.2-1.0); CREATININE 0.6 mg/dL (0.5-1.5); POTASSIUM 3.3 mmol/L (3.5-5.1); TOTAL PROTEIN, SERUM 5.7 g/dL (6.0-8.3)
[2019-10-04] MEDS ORDERED: POTASSIUM CHLORIDE 10MEQ/100ML 100 ML IV PRN (05:00)
[2019-10-04] MEDS ORDERED: LIDOCAINE HCL-MPF 1% 2ML VIAL IV PRN (05:00)
[2019-10-04] MEDS: FUROSEMIDE 10 MG/ML 2ML VIAL IV SCH ×2 (05:23→18:02)
[2019-10-04] MEDS: POTASSIUM CHLORIDE 10% ELIXIR 20 MEQ/15 ML UDCUP PO PRN ×2 (05:24→18:09)
[2019-10-04] MEDS: VANCOMYCIN 1GM+NS 250ML 250 ML IV SCH ×3 (05:26→21:41)
[2019-10-04] MEDS: INSULIN HUMULIN R 100 UNIT/ML 3ML SQ SCH ×4 (05:38→21:00)
--- NOTE | 2019-10-04 08:20 | NUR ---
CARDIZEM IV DRIP STOPPED TELE MONITOR DISPLAYS AFIB WITH A RATE OF LESS THAN 100 BPM.
--- NOTE | 2019-10-04 08:45 | NUR ---
ASSESSMENT ENCOUNTERED PT ASLEEP BUT AROUSEABLE, A&O TO NAME AND PLACE BUT DISORIENTED TO TIME. PT DOES NOT APPEAR TO BE IN ANY DISTRESS NOR ANY NEURO DEFICITS PRESENT. PT DOES C/O RT SHOULDER DISCOMFORT AND BILATERAL LOWER EXTREMITY DISCOMFORT. PT IS ABLE TO TOLERATE FOODS, FLUIDS AND MEDICATION WITH NO THROAT CLEARING OR COUGH. CALL LIGHT WITHIN REACH, FAMILY AT BEDSIDE.
[2019-10-04] MEDS: FAMOTIDINE 20MG TAB 20 MG TAB PO SCH ×2 (09:57→21:38)
[2019-10-04] MEDS: METOPROLOL TARTRATE 50 MG TAB PO SCH ×2 (09:57→21:38)
[2019-10-04] MEDS: LACTULOSE 20 GM/30 ML UDCUP PO SCH ×3 (09:58→21:38)
[2019-10-04] MEDS: ENOXAPARIN SODIUM 40 MG/0.4 ML SYRINGE SQ SCH (09:58)
[2019-10-04] MEDS: THIAMINE HCL 100 MG/ML 2ML VIAL IVP SCH (09:58)
--- NOTE | 2019-10-04 16:50 | NUR ---
[facility] consult Spoke with patient's nurse, Carloz MCNAIR, who stated Dr. Bolanos has already evaluated patient and has given wound care orders. No further [facility] intervention required at this time.
[2019-10-04] MEDS: POTASSIUM CHLORIDE 20 MEQ ERTAB PO PRN (18:09)
[2019-10-04] MEDS: RIFAXIMIN 550 MG TABLET PO SCH (21:38)
[2019-10-04] MEDS: DILTIAZEM HCL 5 MG/ML 10 ML VIAL IV SCH (21:42)
[2019-10-05 04:00] VITALS: BP 124/76
[2019-10-05 05:23] LABS: BASOPHILS % (AUTO) 0.1 % (0.0-5.0); EOSINOPHILS % (AUTO) 0.3 % (0.0-8.0); HEMATOCRIT 31.6 % (42-54); LYMPHOCYTES % (AUTO) 17.2 % (21.0-51.0); MEAN CORPUSCULAR HEMOGLOBIN 32.4 pg (27.0-33.0); MEAN CORPUSCULAR HGB CONC 34.8 g/dL (32.0-36.0); MEAN CORPUSCULAR VOLUME 93.2 fL (79-99); MONOCYTES % (AUTO) 4.8 % (3.0-13.0); NEUTROPHILS % (AUTO) 76.6 % (40.0-77.0); PLATELET COUNT (AUTO) 140 K/uL (130-400); RED BLOOD CELL COUNT(AUTO) 3.39 MIL/uL (4.50-6.20); RED CELL DISTRIBUTION WIDTH 12.2 % (11.0-15.5); WHITE BLOOD COUNT (AUTO) 7.3 K/uL (4.8-10.8)
[2019-10-05 05:27] LABS: % IRON SATURATION 16.6 % (30-44)
[2019-10-05 05:28] LABS: INR 1.31 (0.85-1.15); PARTIAL THROMBOPLASTIN TIME 31.2 SEC (26.3-35.5); PROTHROMBIN TIME 13.6 SEC (9.6-11.6)
[2019-10-05 05:33] LABS: ALBUMIN 1.7 g/dL (3.5-5.0); CREATININE 1.6 mg/dL (0.5-1.5); MAGNESIUM 1.6 mg/dL (1.80-2.40); PHOSPHORUS 3.1 mg/dL (2.5-4.9); POTASSIUM 3.6 mmol/L (3.5-5.1); TOTAL PROTEIN, SERUM 5.9 g/dL (6.0-8.3)
[2019-10-05] MEDS: ZOSYN 3.375GM+NS 50ML 50 ML IV SCH ×3 (06:27→20:28)
[2019-10-05] MEDS: VANCOMYCIN 1GM+NS 250ML 250 ML IV SCH ×2 (06:27→14:00)
[2019-10-05] MEDS: FUROSEMIDE 10 MG/ML 2ML VIAL IV SCH ×2 (06:28→18:44)
[2019-10-05] MEDS: INSULIN HUMULIN R 100 UNIT/ML 3ML SQ SCH ×4 (06:28→21:00)
[2019-10-05 06:38] LABS: ERYTHROCYTE SEDIMENTATION RATE 45 MM/HR (0-20)
[2019-10-05 08:19] VITALS: BP 121/80
[2019-10-05] MEDS: FAMOTIDINE 20MG TAB 20 MG TAB PO SCH ×2 (09:01→20:29)
[2019-10-05] MEDS: LACTULOSE 20 GM/30 ML UDCUP PO SCH ×3 (09:01→20:28)
[2019-10-05] MEDS: RIFAXIMIN 550 MG TABLET PO SCH ×2 (09:01→20:29)
[2019-10-05] MEDS: THIAMINE HCL 100 MG/ML 2ML VIAL IVP SCH (09:01)
[2019-10-05] MEDS: METOPROLOL TARTRATE 50 MG TAB PO SCH ×2 (09:02→20:29)
[2019-10-05] MEDS: ENOXAPARIN SODIUM 40 MG/0.4 ML SYRINGE SQ SCH (09:02)
[2019-10-05 11:33] VITALS: BP 127/78
[2019-10-05 15:05] VITALS: BP 113/74
[2019-10-05 20:02] VITALS: BP 122/70
[2019-10-05] MEDS: DILTIAZEM HCL 5 MG/ML 10 ML VIAL IV SCH (22:15)
[2019-10-05 23:47] VITALS: BP 129/75
[2019-10-06 04:00] VITALS: BP 124/83
[2019-10-06 04:52] LABS: BASOPHILS % (AUTO) 0.2 % (0.0-5.0); EOSINOPHILS % (AUTO) 0.5 % (0.0-8.0); LYMPHOCYTES % (AUTO) 22.2 % (21.0-51.0); MEAN CORPUSCULAR HEMOGLOBIN 31.7 pg (27.0-33.0); MEAN CORPUSCULAR HGB CONC 34.4 g/dL (32.0-36.0); MEAN CORPUSCULAR VOLUME 92.2 fL (79-99); MONOCYTES % (AUTO) 7.7 % (3.0-13.0); NEUTROPHILS % (AUTO) 68.7 % (40.0-77.0); PLATELET COUNT (AUTO) 142 K/uL (130-400); RED BLOOD CELL COUNT(AUTO) 3.47 MIL/uL (4.50-6.20); RED CELL DISTRIBUTION WIDTH 12.1 % (11.0-15.5); WHITE BLOOD COUNT (AUTO) 5.6 K/uL (4.8-10.8)
[2019-10-06 05:15] LABS: ALBUMIN 1.8 g/dL (3.5-5.0); BILIRUBIN,TOTAL 0.8 mg/dL (0.2-1.0); CREATININE 0.6 mg/dL (0.5-1.5); TOTAL PROTEIN, SERUM 5.9 g/dL (6.0-8.3)
[2019-10-06] MEDS: INSULIN HUMULIN R 100 UNIT/ML 3ML SQ SCH ×4 (06:20→21:00)
[2019-10-06] MEDS: ZOSYN 3.375GM+NS 50ML 50 ML IV SCH ×3 (06:47→20:26)
[2019-10-06] MEDS: FUROSEMIDE 10 MG/ML 2ML VIAL IV SCH ×2 (06:47→17:32)
[2019-10-06] MEDS: POTASSIUM CHLORIDE 20 MEQ ERTAB PO PRN ×5 (06:47→20:28)
[2019-10-06 08:03] VITALS: BP 127/75
[2019-10-06] MEDS: RIFAXIMIN 550 MG TABLET PO SCH ×2 (09:24→20:28)
[2019-10-06] MEDS: METOPROLOL TARTRATE 50 MG TAB PO SCH ×2 (09:24→20:27)
[2019-10-06] MEDS: LACTULOSE 20 GM/30 ML UDCUP PO SCH ×3 (09:24→20:26)
[2019-10-06] MEDS: THIAMINE HCL 100 MG/ML 2ML VIAL IVP SCH (09:24)
[2019-10-06] MEDS: FAMOTIDINE 20MG TAB 20 MG TAB PO SCH ×2 (09:24→20:28)
[2019-10-06] MEDS: ENOXAPARIN SODIUM 40 MG/0.4 ML SYRINGE SQ SCH (09:25)
--- NOTE | 2019-10-06 11:06 | NUR ---
RD NOTIFICATION RD CONSULTS DUE TO LOS X 6. PO INTAKE 50% AND HAS POOR APPETITE, PER PT. LBM: 10/05. PT WITH RIGHT FOOT GANGRENE AT THIS TIME. LABS REVIEWED. MEDS REVIEWED. NO DIFFICULTIES CHEWING OR SWALLOWING FOOD/ LIQUIDS. NO COMPLAINTS OG N/V/C/D AT THIS TIME. RD RECOMMENDS TO ADD 75GMCCD AND 2GM NA TO DIET ORDER ADD 30ML PROMOD BID ADD OZZY BID Addendum: 10/06/19 at [address] Amended: Links added.
[2019-10-06 11:28] VITALS: BP 110/70
[2019-10-06] MEDS: MORPHINE SULFATE 2 MG/ML 1ML SYG IV PRN (15:11)
[2019-10-06 15:18] VITALS: BP 117/76
[2019-10-06 20:23] VITALS: BP 120/74
[2019-10-06] MEDS ORDERED: POTASSIUM CHLORIDE 20 MEQ ERTAB PO SCH (20:30)
[2019-10-06] MEDS ORDERED: DIGOXIN 250 MCG TABLET PO SCH (20:30)
[2019-10-06] MEDS ORDERED: FLUCONAZOLE 100 MG TAB PO SCH (20:45)
[2019-10-06 23:00] VITALS: BP 125/72
[2019-10-07] MEDS ORDERED: DIGOXIN 250 MCG TABLET PO SCH ×2 (02:30→08:30)
[2019-10-07 04:00] VITALS: BP 120/72
[2019-10-07 05:33] LABS: MEAN CORPUSCULAR HEMOGLOBIN 31.8 pg (27.0-33.0); MEAN CORPUSCULAR VOLUME 93.5 fL (79-99); PLATELET COUNT (AUTO) 146 K/uL (130-400); RED BLOOD CELL COUNT(AUTO) 3.21 MIL/uL (4.50-6.20); RED CELL DISTRIBUTION WIDTH 12.3 % (11.0-15.5); WHITE BLOOD COUNT (AUTO) 8.3 K/uL (4.8-10.8)
[2019-10-07 05:51] LABS: B-TYPE NATRIURETIC PEPTIDE 1220 pg/mL (0-100)
[2019-10-07] MEDS: INSULIN HUMULIN R 100 UNIT/ML 3ML SQ SCH ×3 (06:12→16:30)
[2019-10-07] MEDS: ZOSYN 3.375GM+NS 50ML 50 ML IV SCH ×2 (06:38→12:32)
[2019-10-07] MEDS: FUROSEMIDE 10 MG/ML 2ML VIAL IV SCH ×2 (06:39→18:15)
[2019-10-07 07:40] VITALS: BP 142/83
[2019-10-07 07:51] LABS: ALBUMIN 1.9 g/dL (3.5-5.0); BILIRUBIN,TOTAL 0.6 mg/dL (0.2-1.0); CREATININE 0.6 mg/dL (0.5-1.5); MAGNESIUM 1.6 mg/dL (1.80-2.40); PHOSPHORUS 3.2 mg/dL (2.5-4.9); TOTAL PROTEIN, SERUM 6.1 g/dL (6.0-8.3)
[2019-10-07] MEDS: FAMOTIDINE 20MG TAB 20 MG TAB PO SCH (09:00)
[2019-10-07] MEDS ORDERED: FLUCONAZOLE 100 MG TAB PO SCH (09:00)
[2019-10-07] MEDS: THIAMINE HCL 100 MG/ML 2ML VIAL IVP SCH (09:00)
[2019-10-07] MEDS: RIFAXIMIN 550 MG TABLET PO SCH (09:00)
[2019-10-07] MEDS: LACTULOSE 20 GM/30 ML UDCUP PO SCH ×2 (09:00→12:32)
[2019-10-07] MEDS: METOPROLOL TARTRATE 50 MG TAB PO SCH (09:00)
[2019-10-07] MEDS: ENOXAPARIN SODIUM 40 MG/0.4 ML SYRINGE SQ SCH (09:01)
[2019-10-07 11:46] VITALS: BP 126/81
[2019-10-07] MEDS: MORPHINE SULFATE 2 MG/ML 1ML SYG IV PRN (12:47)
[2019-10-07] MEDS ORDERED: LACT PO (15:38)
[2019-10-07] MEDS ORDERED: DIGO125T71 PO (15:38)
[2019-10-07] MEDS ORDERED: FLUC100T8 PO (15:38)
[2019-10-07 16:46] VITALS: BP 136/78
== END 2019-10-07 19:25 | disposition home or self-care (01) | DRG 871 ==
LOC: EDH 22:20 → EDHIP 22:21 → UNDOADMIN 10-01 02:48 → 3DH 10-01 04:23 → 2DH 10-03 23:21
PROVIDERS: ADMIT Internal Medicine; ATTEND Internal Medicine
DX: A41.1 Sepsis due to other specified staphylococcus (principal); G92 Toxic encephalopathy; N17.9 Acute kidney failure, unspecified; L03.115 Cellulitis of right lower limb; E11.52 Type 2 diabetes mellitus with diabetic peripheral angiopathy with gangrene; E87.1 Hypo-osmolality and hyponatremia; I13.0 Hypertensive heart and chronic kidney disease with heart failure and stage 1 through stage 4 chronic kidney disease, or unspecified chronic kidney disease; F10.239 Alcohol dependence with withdrawal, unspecified; I48.92 Unspecified atrial flutter; I50.22 Chronic systolic (congestive) heart failure; G93.1 Anoxic brain damage, not elsewhere classified; L97.519 Non-pressure chronic ulcer of other part of right foot with unspecified severity; M47.815 Spondylosis without myelopathy or radiculopathy, thoracolumbar region; E11.621 Type 2 diabetes mellitus with foot ulcer; E87.6 Hypokalemia; B96.89 Other specified bacterial agents as the cause of diseases classified elsewhere; N18.9 Chronic kidney disease, unspecified; A41.89 Other specified sepsis; K72.90 Hepatic failure, unspecified without coma; L03.031 Cellulitis of right toe; M25.431 Effusion, right wrist; E11.22 Type 2 diabetes mellitus with diabetic chronic kidney disease; K70.30 Alcoholic cirrhosis of liver without ascites; R29.6 Repeated falls; S92.413A Displaced fracture of proximal phalanx of unspecified great toe, initial encounter for closed fracture; S92.002A Unspecified fracture of left calcaneus, initial encounter for closed fracture; B35.4 Tinea corporis; D64.9 Anemia, unspecified; E66.9 Obesity, unspecified; F17.200 Nicotine dependence, unspecified, uncomplicated; H70.93 Unspecified mastoiditis, bilateral; I48.91 Unspecified atrial fibrillation; E78.5 Hyperlipidemia, unspecified; Z74.01 Bed confinement status; Z91.81 History of falling; Y92.89 Other specified places as the place of occurrence of the external cause; Z68.24 Body mass index [BMI] 24.0-24.9, adult; Z86.73 Personal history of transient ischemic attack (TIA), and cerebral infarction without residual deficits
CPT/HCPCS: 36415; 70450; 70551; 71045; 71275; 73110; 73590; 73610; 73630; 73700; 80048; 80053; 80202; 80305; 81001; 82140; 82570; 82948; 83540; 83550; 83605; 83690; 83735; 83880; 83930; 83935; 84100; 84132; 84145; 84300; 84443; 84484; 84550; 85025; 85027; 85378; 85610; 85651; 85730; 86140; 87040; 87077; 87186; 93005; 93926; 93970; 93971; G0378; G0480; J0696; J1650; J1940; J2060; J2543; J2920; J3370; J3411; J3490; J7030; Q9967

== ENCOUNTER 2019-11-28 20:08 | Inpatient (IN) | payer MEDICAID, OTHER ==
[~2019-11-28] VITALS: Ht 172.7 cm; Wt 73.1 kg
[~2019-11-28 20:08] MED LIST changes: +ACET1TAB12 PO; +DIGO125T71 PO; +FLUC100T8 PO; +LACT PO; -PANT40TA25 PO; +PARO7.5C2 PO
[2019-11-28] MEDS ORDERED: THIAMINE HCL 100 MG/ML 2ML VIAL ONE (20:44)
[2019-11-28] MEDS ORDERED: ONDANSETRON HCL 4 MG/2 ML VIAL ONE (21:06)
[2019-11-28 21:08] LABS: INR 1.34 (0.85-1.15); PARTIAL THROMBOPLASTIN TIME 36.2 SEC (26.3-35.5); PROTHROMBIN TIME 13.9 SEC (9.6-11.6)
[2019-11-28] MEDS ORDERED: SODIUM CHLORIDE 0.9% 1000ML 1,000 ML IV ONE (21:08)
[2019-11-28 21:10] LABS: BASOPHILS % (AUTO) 0.1 % (0.0-5.0); HEMATOCRIT 28.9 % (42-54); LYMPHOCYTES % (AUTO) 17.2 % (21.0-51.0); MEAN CORPUSCULAR HEMOGLOBIN 31.7 pg (27.0-33.0); MEAN CORPUSCULAR HGB CONC 35.3 g/dL (32.0-36.0); MEAN CORPUSCULAR VOLUME 89.8 fL (79-99); MONOCYTES % (AUTO) 6.3 % (3.0-13.0); NEUTROPHILS % (AUTO) 75.2 % (40.0-77.0); PLATELET COUNT (AUTO) 166 K/uL (130-400); RED BLOOD CELL COUNT(AUTO) 3.22 MIL/uL (4.50-6.20); RED CELL DISTRIBUTION WIDTH 13.4 % (11.0-15.5); WHITE BLOOD COUNT (AUTO) 19.9 K/uL (4.8-10.8)
[2019-11-28 21:11] LABS: ALANINE AMINOTRANSFERASE 17 U/L (12-78); ALBUMIN 2.8 g/dL (3.5-5.0); ALCOHOL, BLOOD < 3 mg/dL (0-10); AMYLASE 29 U/L (25-115); ASPARTATE AMINOTRANSFERASE 19 U/L (10-37); BILIRUBIN,TOTAL 1.4 mg/dL (0.2-1.0); CARBON DIOXIDE 19 mmol/L (21-32); CREATINE KINASE, TOTAL 29 U/L (21-232); CREATININE 1.2 mg/dL (0.5-1.5); GLOMERULAR FILTR. RATE CALC 65 mL/min (>60); LIPASE 50 U/L (114-286); POTASSIUM 5.1 mmol/L (3.5-5.1); TOTAL PROTEIN, SERUM 7.4 g/dL (6.0-8.3); UREA NITROGEN, BLOOD 20 mg/dL (7-18)
[2019-11-28] MEDS ORDERED: LEVOFLOXACIN 500 MG/D5W 100 ML 100 ML ONE (21:16)
[2019-11-28 21:17] LABS: CHLORIDE 78 mmol/L (101-111); SODIUM SERUM 109 mmol/L (136-145)
[2019-11-28] MEDS ORDERED: CEFTRIAXONE SODIUM 1 GM ONE (21:17)
[2019-11-28 21:20] LABS: GLUCOSE,RANDOM 126 mg/dL (70-105)
[2019-11-28] MEDS ORDERED: SODIUM CHLORIDE 3% 500 ML IV ONE (21:45)
[2019-11-28 21:47] LABS: BILIRUBIN,URINE MODERATE (NEGATIVE); GLUCOSE, URINE (UA) 100 mg/dL (NEGATIVE); KETONES,URINE NEGATIVE (NEGATIVE); LEUKOCYTE ESTERASE ,URINE LARGE (NEGATIVE); NITRATE,URINE POSITIVE (NEGATIVE); OCCULT BLOOD,URINE LARGE (NEGATIVE); PH,URINE 7.5 (5.0-8.0); PROTEIN,URINE >=300 mg/dL (NEGATIVE); UROBILINOGEN,URINE >=8.0 mg/dL (0.2-1.0)
[2019-11-28 21:51] LABS: APPEARANCE,URINE SLIGHTLY CLOUDY (CLEAR); COLOR,URINE Orange (YELLOW)
[2019-11-28 22:34] LABS: BACTERIA,URINE Many /HPF (None Seen); MUCUS,URINE Few LPF (None Seen)
[2019-11-28 22:59] LABS: AMPHET/METH SCREEN,URINE NEGATIVE (NEGATIVE); BARBITURATE SCREEN, URINE NEGATIVE (NEGATIVE); BENZODIAZEPINES SCREEN,URINE NEGATIVE (NEGATIVE); CANNABINOID SCREEN,URINE NEGATIVE (NEGATIVE); COCAINE SCREEN,URINE NEGATIVE (NEGATIVE); OPIATE SCREEN,URINE NEGATIVE (NEGATIVE); PHENCYCLIDINE SCREEN,URINE NEGATIVE (NEGATIVE)
[2019-11-28] MEDS: CEFTRIAXONE SODIUM 1 GM IVP SCH (23:15)
[2019-11-29] VITALS (37 sets, daily range): BP systolic 94–157; BP diastolic 37–120
[2019-11-29] MEDS ORDERED: LEVOFLOXACIN 500 MG/D5W 100 ML 100 ML IV SCH
[2019-11-29 00:08] LABS: CREATININE 1.1 mg/dL (0.5-1.5); POTASSIUM 4.8 mmol/L (3.5-5.1)
--- NOTE | 2019-11-29 03:30 | NUR ---
Admitted from ER. Awake, alert, and oriented. Had a normal colored bm on admission. Milena care done. F/C to bedside drainage. Hematuria noted. 3% Saline infusing at 10 mls/hr into patent 22g to right hand. Venipuncture x 1. 18g IV started to right forearm. Oriented x 4. Oriented to room, call light, plan of care. Call light and needed items placed readily at hand. Encouraged to call prn.
[2019-11-29 05:44] LABS: BASOPHILS % (AUTO) 0.1 % (0.0-5.0); HEMATOCRIT 26.4 % (42-54); LYMPHOCYTES % (AUTO) 15.1 % (21.0-51.0); MEAN CORPUSCULAR HEMOGLOBIN 31.7 pg (27.0-33.0); MEAN CORPUSCULAR HGB CONC 36.7 g/dL (32.0-36.0); MEAN CORPUSCULAR VOLUME 86.3 fL (79-99); MONOCYTES % (AUTO) 6.6 % (3.0-13.0); NEUTROPHILS % (AUTO) 77.3 % (40.0-77.0); PLATELET COUNT (AUTO) 133 K/uL (130-400); RED BLOOD CELL COUNT(AUTO) 3.06 MIL/uL (4.50-6.20); RED CELL DISTRIBUTION WIDTH 13.3 % (11.0-15.5); WHITE BLOOD COUNT (AUTO) 16.3 K/uL (4.8-10.8)
[2019-11-29 05:49] LABS: HEMOGLOBIN A1C 5.2 % (4.0-6.0)
[2019-11-29 06:16] LABS: ALBUMIN 2.7 g/dL (3.5-5.0); BILIRUBIN,DIRECT 0.4 mg/dL (0.0-0.3); BILIRUBIN,TOTAL 0.9 mg/dL (0.2-1.0); CREATININE 0.9 mg/dL (0.5-1.5)
--- NOTE | 2019-11-29 07:43 | NUR ---
[address] Hernandez. Reported sodium, chloride levels, hematuria, pt status. States will see patient this morning. Care of patient endorsed to Stacie MCNAIR
--- NOTE | 2019-11-29 08:23 | NUR ---
DR PABLO'S PA IN TO SEE PT
[2019-11-29] MEDS ORDERED: SODIUM CHLORIDE 3% 500 ML SIVP SCH (08:30)
[2019-11-29 08:58] LABS: POTASSIUM 4.9 mmol/L (3.5-5.1)
[2019-11-29] MEDS: METOPROLOL TARTRATE 50 MG TAB PO SCH ×2 (09:00→21:51)
[2019-11-29] MEDS ORDERED: METOPROLOL TARTRATE 50 MG TAB PO SCH (09:00)
[2019-11-29 09:16] LABS: INR 1.4 (0.85-1.15); PARTIAL THROMBOPLASTIN TIME 36.6 SEC (26.3-35.5); PROTHROMBIN TIME 14.5 SEC (9.6-11.6)
[2019-11-29] MEDS: FAMOTIDINE/PF 20 MG/2 ML VIAL IV SCH (09:30)
[2019-11-29] MEDS: CEFTRIAXONE SODIUM 1 GM IVP SCH (10:36)
[2019-11-29] MEDS: ONDANSETRON HCL 4 MG/2 ML VIAL IV PRN (10:36)
[2019-11-29 12:57] LABS: CREATININE 0.9 mg/dL (0.5-1.5); POTASSIUM 5.2 mmol/L (3.5-5.1)
--- NOTE | 2019-11-29 13:31 | NUR ---
INITIAL Patient lives with spouse, Coni Rodriguez, [phone]. No home services. DME: wheelchair, standard walker, cane. Patient needs help to complete ADL's and does not drive. Spouse helps transport patient to and from MD appts. PCP is Dr. Ger Lin. Pharmacy is [facility] located on [facility]. DCP is home. Patient has no insurance or benefits. He is a [place] citizen and has worked in the [place]. Patient was provided with community resources for post hospitalization follow up. Patient was also provided with [facility] card for prescriptions and educated on [employer] $4 medication program and [employer] $5 medication program. Patient is being assisted by [employer] for financial matters. Patient states he already filed for disability and was approved. Pending Medicaid card as per . Addendum: 11/29/19 at 1334 by DANIE COYLE SS Amended: Links added.
[2019-11-29] MEDS: MEROPENEM 1 GM VIAL IVP SCH ×2 (14:16→21:51)
[2019-11-29] MEDS ORDERED: POTASSIUM CHLORIDE 10% ELIXIR 20 MEQ/15 ML UDCUP PO PRN (15:45)
[2019-11-29] MEDS ORDERED: POTASSIUM CHLORIDE 20 MEQ ERTAB PO PRN (15:45)
[2019-11-29 16:22] LABS: CREATININE 0.9 mg/dL (0.5-1.5); POTASSIUM 4.7 mmol/L (3.5-5.1)
[2019-11-29] MEDS: MAGNESIUM 2GM PREMIX 50ML 50 ML IV PRN (17:27)
[2019-11-29 20:25] LABS: THYROID STIMULATING HORMONE 1.02 uIU/mL (0.36-3.74); URIC ACID 2.8 mg/dL (2.6-7.2)
[2019-11-29] MEDS ORDERED: THIAMINE HCL 100 MG TABLET PO SCH ×2 (20:30→22:00)
[2019-11-29 20:42] LABS: CREATININE 0.9 mg/dL (0.5-1.5)
[2019-11-30] VITALS (13 sets, daily range): BP systolic 95–147; BP diastolic 47–105
[2019-11-30 00:43] LABS: CREATININE 0.8 mg/dL (0.5-1.5); POTASSIUM 4.6 mmol/L (3.5-5.1)
[2019-11-30 04:16] LABS: HEMATOCRIT 26.4 % (42-54); MEAN CORPUSCULAR HEMOGLOBIN 30.7 pg (27.0-33.0); MEAN CORPUSCULAR HGB CONC 34.5 g/dL (32.0-36.0); MEAN CORPUSCULAR VOLUME 89.2 fL (79-99); PLATELET COUNT (AUTO) 103 K/uL (130-400); RED BLOOD CELL COUNT(AUTO) 2.96 MIL/uL (4.50-6.20); RED CELL DISTRIBUTION WIDTH 13.6 % (11.0-15.5); WHITE BLOOD COUNT (AUTO) 7.8 K/uL (4.8-10.8)
[2019-11-30 04:31] LABS: INR 1.28 (0.85-1.15); PARTIAL THROMBOPLASTIN TIME 36.4 SEC (26.3-35.5); PROTHROMBIN TIME 13.3 SEC (9.6-11.6)
[2019-11-30 04:47] LABS: ALBUMIN 2.6 g/dL (3.5-5.0); BILIRUBIN,TOTAL 0.7 mg/dL (0.2-1.0); CREATININE 0.7 mg/dL (0.5-1.5); MAGNESIUM 1.5 mg/dL (1.80-2.40); PHOSPHORUS 2.4 mg/dL (2.5-4.9); POTASSIUM 4.6 mmol/L (3.5-5.1); TOTAL PROTEIN, SERUM 6.6 g/dL (6.0-8.3)
[2019-11-30] MEDS: MEROPENEM 1 GM VIAL IVP SCH ×3 (05:08→20:48)
[2019-11-30] MEDS: MAGNESIUM 2GM PREMIX 50ML 50 ML IV PRN (05:38)
[2019-11-30 08:53] LABS: CREATININE 0.7 mg/dL (0.5-1.5); POTASSIUM 4.5 mmol/L (3.5-5.1)
[2019-11-30] MEDS: PHYTONADIONE 10 MG/1 ML AMP IM SCH (08:59)
[2019-11-30] MEDS: FAMOTIDINE/PF 20 MG/2 ML VIAL IV SCH (09:00)
[2019-11-30] MEDS: FOLIC ACID/VITAMIN B COMP W-C 1 CAP TAB PO SCH (09:00)
[2019-11-30] MEDS: THIAMINE HCL 100 MG TABLET PO SCH (09:00)
[2019-11-30] MEDS: METOPROLOL TARTRATE 50 MG TAB PO SCH ×3 (09:00→20:48)
--- NOTE | 2019-11-30 11:35 | NUR ---
OUT OF BED TO CHAIR BY PHYSICAL THERAPY. PT NOT AMBULATING AT HOME DUE TO RECENT FALLS. AND WAS CONCERNED THAT HE WOULD NOT BE ABLE TO GET OUT OF BED BY HIMSELF. I STRESSED NEED TO PT AND FOR PT TO TAKE LACTULOSE PRESCRIBED
[2019-11-30 12:25] LABS: CREATININE 0.7 mg/dL (0.5-1.5); POTASSIUM 4.1 mmol/L (3.5-5.1)
[2019-11-30] MEDS: ONDANSETRON HCL 4 MG/2 ML VIAL IV PRN (13:14)
[2019-11-30] MEDS ORDERED: COMPOUND IV MISC 1 EACH IVSOLN MISC PRN (14:00)
--- NOTE | 2019-11-30 16:00 | NUR ---
[facility] CONSULT PATIENT ASSESSED REQUESTED: PATIENT PRESENTS WITH TRAUMA WOUND TO RIGHT 3RD TOE; [facility] RECOMMENDATIONS SUBMITTED. Addendum: 12/01/19 at 1148 by NGOC DELANEY LVN LVN W Amended: Links added.
[2019-11-30 16:25] LABS: CREATININE 0.7 mg/dL (0.5-1.5); POTASSIUM 4.3 mmol/L (3.5-5.1)
[2019-11-30] MEDS: HONEY 1 APPL/ML TUBE TP SCH (19:50)
[2019-11-30 20:17] LABS: CREATININE 0.7 mg/dL (0.5-1.5); POTASSIUM 4.2 mmol/L (3.5-5.1)
[2019-12-01 00:05] VITALS: BP 100/63
[2019-12-01 00:52] LABS: CREATININE 0.6 mg/dL (0.5-1.5)
[2019-12-01 04:12] VITALS: BP 103/61
[2019-12-01 04:18] LABS: HEMATOCRIT 24.3 % (42-54); LYMPHOCYTES % (AUTO) 22.6 % (21.0-51.0); MEAN CORPUSCULAR HEMOGLOBIN 30.9 pg (27.0-33.0); MEAN CORPUSCULAR HGB CONC 34.6 g/dL (32.0-36.0); MEAN CORPUSCULAR VOLUME 89.3 fL (79-99); NEUTROPHILS % (AUTO) 66.9 % (40.0-77.0); PLATELET COUNT (AUTO) 82 K/uL (130-400); RED BLOOD CELL COUNT(AUTO) 2.72 MIL/uL (4.50-6.20); RED CELL DISTRIBUTION WIDTH 13.9 % (11.0-15.5); WHITE BLOOD COUNT (AUTO) 4.1 K/uL (4.8-10.8)
[2019-12-01 04:28] LABS: ALBUMIN 2.2 g/dL (3.5-5.0); BILIRUBIN,TOTAL 0.6 mg/dL (0.2-1.0); CREATININE 0.7 mg/dL (0.5-1.5); MAGNESIUM 1.7 mg/dL (1.80-2.40); PHOSPHORUS 1.9 mg/dL (2.5-4.9); POTASSIUM 3.9 mmol/L (3.5-5.1); TOTAL PROTEIN, SERUM 6.3 g/dL (6.0-8.3)
--- NOTE | 2019-12-01 05:00 | NUR ---
ADMIT 0450 RECEIVED REPORT FROM NGOC RONQUILLO RN 0500 PT ADMITTED RM 232 CONNECTED TO TELEMETRY BELONGINGS AT BEDSIDE NO APPARENT DISTRESS NOTED WILL CONTINUE TO MONITOR PT.
[2019-12-01] MEDS: MEROPENEM 1 GM VIAL IVP SCH (05:45)
[2019-12-01 08:00] VITALS: BP 108/73
[2019-12-01 08:25] LABS: CREATININE 0.7 mg/dL (0.5-1.5); POTASSIUM 4.1 mmol/L (3.5-5.1)
[2019-12-01] MEDS: METOPROLOL TARTRATE 50 MG TAB PO SCH ×3 (08:43→21:54)
[2019-12-01] MEDS: FOLIC ACID/VITAMIN B COMP W-C 1 CAP TAB PO SCH (08:43)
[2019-12-01] MEDS: FAMOTIDINE/PF 20 MG/2 ML VIAL IV SCH (08:43)
[2019-12-01] MEDS: PHYTONADIONE 10 MG/1 ML AMP IM SCH (08:44)
[2019-12-01] MEDS: THIAMINE HCL 100 MG TABLET PO SCH (08:44)
[2019-12-01] MEDS: MAGNESIUM 2GM PREMIX 50ML 50 ML IV PRN (08:54)
[2019-12-01 12:00] VITALS: BP 93/61
[2019-12-01] MEDS: IRON SUCROSE COMPLEX 100 MG in SODIUM CHLORIDE 0.9% 50 ML IV SCH ×2 (12:28→12:34)
[2019-12-01] MEDS ORDERED: EPOETIN ALFA 10,000 UNIT/ML VIAL SQ SCH (12:45)
[2019-12-01] MEDS ORDERED: CEFAZOLIN SODIUM 1 GM VIAL IVP SCH (13:00)
[2019-12-01 13:12] LABS: CREATININE 0.7 mg/dL (0.5-1.5); POTASSIUM 4.2 mmol/L (3.5-5.1)
[2019-12-01] MEDS ORDERED: CEFTRIAXONE SODIUM 1 GM IVP SCH (14:00)
[2019-12-01] MEDS: NEUTRA-PHOS PACKET 1 EACH PO SCH ×3 (14:28→21:55)
[2019-12-01] MEDS: SODIUM CHLORIDE 0.9% 1000ML 1,000 ML IV SCH (15:11)
[2019-12-01 16:40] VITALS: BP 116/73
[2019-12-01 17:33] LABS: CREATININE 0.6 mg/dL (0.5-1.5); POTASSIUM 4.1 mmol/L (3.5-5.1)
[2019-12-01] MEDS: HONEY 1 APPL/ML TUBE TP SCH (20:00)
[2019-12-01 20:13] VITALS: BP 111/74
[2019-12-01 20:42] LABS: CREATININE 0.6 mg/dL (0.5-1.5)
[2019-12-02 00:04] VITALS: BP 119/74
[2019-12-02 00:38] LABS: CREATININE 0.6 mg/dL (0.5-1.5)
[2019-12-02 03:45] VITALS: BP 112/74
[2019-12-02] MEDS: SODIUM CHLORIDE 0.9% 1000ML 1,000 ML IV SCH (05:20)
[2019-12-02 05:21] LABS: BASOPHILS % (AUTO) 0.3 % (0.0-5.0); EOSINOPHILS % (AUTO) 0.3 % (0.0-8.0); HEMATOCRIT 25.7 % (42-54); LYMPHOCYTES % (AUTO) 30.2 % (21.0-51.0); MEAN CORPUSCULAR HGB CONC 34.6 g/dL (32.0-36.0); MEAN CORPUSCULAR VOLUME 89.5 fL (79-99); MONOCYTES % (AUTO) 10.3 % (3.0-13.0); NEUTROPHILS % (AUTO) 58.4 % (40.0-77.0); PLATELET COUNT (AUTO) 76 K/uL (130-400); RED BLOOD CELL COUNT(AUTO) 2.87 MIL/uL (4.50-6.20); RED CELL DISTRIBUTION WIDTH 13.3 % (11.0-15.5); WHITE BLOOD COUNT (AUTO) 3.8 K/uL (4.8-10.8)
[2019-12-02 05:31] LABS: INR 1.12 (0.85-1.15); PROTHROMBIN TIME 11.7 SEC (9.6-11.6)
[2019-12-02 05:41] LABS: ALBUMIN 2.3 g/dL (3.5-5.0); CREATININE 0.7 mg/dL (0.5-1.5); MAGNESIUM 1.6 mg/dL (1.80-2.40)
[2019-12-02] MEDS: MAGNESIUM 2GM PREMIX 50ML 50 ML IV PRN (06:35)
[2019-12-02 07:00] VITALS: BP 110/75
[2019-12-02] MEDS ORDERED: CEFTRIAXONE SODIUM 1 GM IVP SCH (09:00)
[2019-12-02] MEDS ORDERED: FAMOTIDINE 20MG TAB 20 MG TAB PO SCH (09:00)
[2019-12-02] MEDS: IRON SUCROSE COMPLEX 100 MG in SODIUM CHLORIDE 0.9% 50 ML IV SCH (10:54)
[2019-12-02] MEDS: FOLIC ACID/VITAMIN B COMP W-C 1 CAP TAB PO SCH (10:55)
[2019-12-02] MEDS: THIAMINE HCL 100 MG TABLET PO SCH (10:55)
[2019-12-02] MEDS: NEUTRA-PHOS PACKET 1 EACH PO SCH ×2 (10:55→14:31)
[2019-12-02] MEDS: METOPROLOL TARTRATE 50 MG TAB PO SCH ×2 (10:55→14:32)
[2019-12-02] MEDS: PHYTONADIONE 10 MG/1 ML AMP IM SCH (10:56)
[2019-12-02 11:00] VITALS: BP 106/70
[2019-12-02] MEDS ORDERED: THIA100T91 PO (11:13)
[2019-12-02] MEDS ORDERED: LEVO500T2 PO (11:13)
[2019-12-02] MEDS ORDERED: MAGOX PO (11:13)
[2019-12-02] MEDS ORDERED: TAMSULOSIN HCL 0.4 MG CAP.ER.24H PO SCH (11:15)
[2019-12-02 12:23] LABS: CREATININE 0.6 mg/dL (0.5-1.5); POTASSIUM 4.1 mmol/L (3.5-5.1)
[2019-12-02 15:00] VITALS: BP 93/66
--- NOTE | 2019-12-02 17:35 | NUR ---
DISCHARGE VERBAL & WRITTEN DISCHARGE INSTRUCTIONS REVIEWED & GIVEN TO PT & FAMILY. QUESTIONS ENCOURAGED & CLARIFIED. PROPER CARE & PREVENTION OF HYPONATREMIA & HEMATURIA REVIEWED. NEW PRESCRIBED MEDICATIONS REVIEWED. PT & FAMILY INFORMED PRESCRIPTION TRANSMITTED TO PHARMACY IN FILE. PT TO F/U W/PCP IN 3-5 DAYS. TELE WILBER REMOVED EARLIER. IV DC'D EARLIER. PT & FAMILY TO GATHER PERSONAL BELONGINGS. WILL NOTIFY STAFF WHEN READY TO BE TAKEN TO PRIVATE VEHICLE.
--- NOTE | 2019-12-02 17:50 | NUR ---
DISCHARGE PT TAKEN TO PRIVATE VEHICLE VIA WC BY Jabier LANDEROS PCP, ACCOMPANIED BY FAMILY. NO DISTRESS NOTED.
[2019-12-03] MEDS ORDERED: MAGNESIUM OXIDE 400 MG TABLET PO SCH (09:00)
== END 2019-12-02 17:50 | disposition home or self-care (01) | DRG 871 ==
LOC: EDH 20:08 → EDHIP 20:09 → 2BH 11-29 01:41 → 2AH 12-01 04:41
PROVIDERS: ADMIT Internal Medicine; ATTEND Internal Medicine
DX: A41.9 Sepsis, unspecified organism (principal); I50.23 Acute on chronic systolic (congestive) heart failure; E87.1 Hypo-osmolality and hyponatremia; D68.4 Acquired coagulation factor deficiency; I48.20 Chronic atrial fibrillation, unspecified; N12 Tubulo-interstitial nephritis, not specified as acute or chronic; M86.671 Other chronic osteomyelitis, right ankle and foot; I11.0 Hypertensive heart disease with heart failure; L97.519 Non-pressure chronic ulcer of other part of right foot with unspecified severity; E11.621 Type 2 diabetes mellitus with foot ulcer; K72.90 Hepatic failure, unspecified without coma; K70.30 Alcoholic cirrhosis of liver without ascites; D64.9 Anemia, unspecified; E11.69 Type 2 diabetes mellitus with other specified complication; E83.39 Other disorders of phosphorus metabolism; E83.42 Hypomagnesemia; E86.1 Hypovolemia; F10.10 Alcohol abuse, uncomplicated; F41.1 Generalized anxiety disorder; K76.0 Fatty (change of) liver, not elsewhere classified; K82.8 Other specified diseases of gallbladder; R31.0 Gross hematuria; Z80.3 Family history of malignant neoplasm of breast
CPT/HCPCS: 36415; 70450; 71045; 73630; 74176; 76770; 80048; 80053; 80076; 80305; 81001; 82040; 82140; 82150; 82533; 82550; 82948; 83036; 83540; 83550; 83605; 83690; 83735; 83880; 83930; 83935; 84100; 84145; 84300; 84443; 84484; 84550; 85025; 85027; 85610; 85730; 87040; 87088; 93005; 93926; 97039; 99291; G0378; G0480; J0696; J0885; J1756; J1956; J2185; J2405; J3411; J3430; J3475; J3490; J7030

== ENCOUNTER 2022-01-30 10:55 | Observation (INO) | payer MEDICARE ==
[~2022-01-30] VITALS: Ht 165.1 cm; Wt 76.8 kg
[~2022-01-30 10:55] MED LIST changes: +FLUC100T12 PO; -FLUC100T8 PO; +LEVO500T2 PO; +MAGN400T7 PO; +THIA100T91 PO
[2022-01-30 11:07] LABS: BASOPHILS % (AUTO) 0.3 % (0.0-5.0); EOSINOPHILS % (AUTO) 0.4 % (0.0-8.0); HEMATOCRIT 39.1 % (42-54); LYMPHOCYTES % (AUTO) 44.5 % (21.0-51.0); MEAN CORPUSCULAR HEMOGLOBIN 32.9 pg (27.0-33.0); MEAN CORPUSCULAR HGB CONC 36.8 g/dL (32.0-36.0); MEAN CORPUSCULAR VOLUME 89.3 fL (79-99); MONOCYTES % (AUTO) 3.3 % (3.0-13.0); NEUTROPHILS % (AUTO) 51.2 % (40.0-77.0); PLATELET COUNT (AUTO) 170 K/uL (130-400); RED BLOOD CELL COUNT(AUTO) 4.38 MIL/uL (4.50-6.20); RED CELL DISTRIBUTION WIDTH 12.3 % (11.0-15.5); WHITE BLOOD COUNT (AUTO) 11.5 K/uL (4.8-10.8)
[2022-01-30 11:15] LABS: CREATININE 0.8 mg/dL (0.5-1.5); POTASSIUM 4.1 mmol/L (3.5-5.1)
[2022-01-30 11:20] LABS: ALBUMIN 4.1 g/dL (3.5-5.0); BILIRUBIN,TOTAL 0.9 mg/dL (0.2-1.0); TOTAL PROTEIN, SERUM 7.7 g/dL (6.0-8.3)
[2022-01-30] MEDS ORDERED: ASPIRIN 81MG CHEW TAB PO SCH (12:00)
[2022-01-30] MEDS ORDERED: NITROGLYCERIN 1GM OINT 1 INCH/1GM TD SCH (12:00)
[2022-01-30] MEDS ORDERED: LORAZEPAM 2 MG/ML 1 ML VIAL IVP SCH (12:00)
[2022-01-30 13:08] LABS: APPEARANCE,URINE Clear (CLEAR); BILIRUBIN,URINE Negative (NEGATIVE); COLOR,URINE Yellow (YELLOW); GLUCOSE, URINE (UA) Negative (NEGATIVE); KETONES,URINE Trace mg/dL (NEGATIVE); LEUKOCYTE ESTERASE ,URINE Negative (NEGATIVE); NITRATE,URINE Negative (NEGATIVE); OCCULT BLOOD,URINE Trace (NEGATIVE); PROTEIN,URINE Trace mg/dL (NEGATIVE); UROBILINOGEN,URINE 0.2 mg/dL (0.2-1.0)
[2022-01-30 13:15] LABS: AMPHET/METH SCREEN,URINE NEGATIVE (NEGATIVE); BARBITURATE SCREEN, URINE NEGATIVE (NEGATIVE); BENZODIAZEPINES SCREEN,URINE NEGATIVE (NEGATIVE); CANNABINOID SCREEN,URINE NEGATIVE (NEGATIVE); COCAINE SCREEN,URINE NEGATIVE (NEGATIVE); OPIATE SCREEN,URINE NEGATIVE (NEGATIVE); PHENCYCLIDINE SCREEN,URINE NEGATIVE (NEGATIVE)
[2022-01-30 13:25] LABS: BACTERIA,URINE Rare /HPF (None Seen); MUCUS,URINE Moderate LPF (None Seen); RBC,URINE 0-1 /HPF (0-1); SQUAMOUS EPITHELIAL CELL,UR None Seen /HPF (0-2); WBC,URINE 0-1 /HPF (0-1)
[2022-01-30] MEDS ORDERED: ONDANSETRON 4MG INJ IV PRN (14:00)
[2022-01-30] MEDS ORDERED: ACETAMINOPHEN 325 MG TAB PO PRN ×2 (14:00)
[2022-01-30 14:04] LABS: HEMOGLOBIN A1C 7.6 % (4.0-6.0)
[2022-01-30] MEDS: NITROGLYCERIN 1GM OINT 1 INCH/1GM TD SCH ×2 (14:08→22:47)
[2022-01-30] MEDS: FAMOTIDINE 20MG TAB PO SCH (21:12)
[2022-01-30] MEDS: METOPROLOL TARTRATE 25 MG TAB PO SCH (21:12)
[2022-01-30] MEDS: BISACODYL 5 MG TABLET.DR PO SCH (21:12)
[2022-01-31 02:50] VITALS: BP 139/74
[2022-01-31 04:42] LABS: CHOLESTEROL 113 mg/dL (<200); HDL CHOLESTEROL 39 mg/dL (29-71); LDL DIRECT 65 mg/dL (0-99); TRIGLYCERIDES 79 mg/dL (30-200)
[2022-01-31] MEDS: NITROGLYCERIN 1GM OINT 1 INCH/1GM TD SCH (06:22)
[2022-01-31 08:08] VITALS: BP 156/81
[2022-01-31] MEDS: FAMOTIDINE 20MG TAB PO SCH (08:57)
[2022-01-31] MEDS: BISACODYL 5 MG TABLET.DR PO SCH (08:57)
[2022-01-31] MEDS: METOPROLOL TARTRATE 25 MG TAB PO SCH (08:57)
[2022-01-31] MEDS ORDERED: ENOXAPARIN SODIUM 40 MG/0.4 ML SYRINGE SQ SCH (09:00)
[2022-01-31] MEDS ORDERED: ASPIRIN 81MG CHEW TAB PO SCH (09:00)
[2022-01-31 11:19] VITALS: BP 149/90
[2022-01-31] MEDS ORDERED: LORAZEPAM 0.5 MG TABLET PO SCH (12:00)
[2022-01-31] MEDS ORDERED: OMEP20CA12 PO (12:14)
[2022-01-31] MEDS ORDERED: APIX5TAB PO (12:14)
[2022-01-31] MEDS ORDERED: METO100T14 PO (12:21)
[2022-01-31] MEDS ORDERED: METF-527 PO (12:21)
[2022-01-31] MEDS ORDERED: PARO10TA71 PO (12:21)
[2022-01-31] MEDS ORDERED: GLIP5POW MC (12:21)
== END 2022-01-31 01:30 | disposition home or self-care (01) ==
LOC: EDH 10:55 → EDHIP 13:31 → 4CH 01-31 01:31
PROVIDERS: ADMIT Internal Medicine; ATTEND Internal Medicine
DX: R07.89 Other chest pain (principal); I20.0 Unstable angina; I48.0 Paroxysmal atrial fibrillation; E11.9 Type 2 diabetes mellitus without complications; I10 Essential (primary) hypertension; D72.829 Elevated white blood cell count, unspecified; E78.5 Hyperlipidemia, unspecified; E87.1 Hypo-osmolality and hyponatremia; E87.8 Other disorders of electrolyte and fluid balance, not elsewhere classified; K21.9 Gastro-esophageal reflux disease without esophagitis; Z79.01 Long term (current) use of anticoagulants; Z79.899 Other long term (current) drug therapy; Z91.19 Patient's noncompliance with other medical treatment and regimen
CPT/HCPCS: 36415 ×2; 71045; 80053; 80061; 80305; 81001; 82550 ×3; 82948 ×2; 83036; 83874 ×3; 83930; 83935; 84484 ×4; 85025; 93005 ×4; 96372; 96374; 99285; G0378 ×12; J1650; J2060

== ENCOUNTER 2025-08-13 18:21 | Emergency (ER) | payer MEDICARE ==
[~2025-08-13] VITALS: Ht 157.5 cm; Wt 72.6 kg
[~2025-08-13 18:21] MED LIST changes: -ACET1TAB12 PO; +APIX5TAB PO; -DIGO125T71 PO; -FLUC100T12 PO; -FURO20TA4 PO; +GLIP5POW MC; -GLIP5TAB11 PO; -LEVO500T2 PO; -METF-446 PO; +METF-527 PO; +METO100T14 PO; -METO50 PO; +OMEP20CA12 PO; +PARO10TA71 PO; -PARO7.5C2 PO
--- NOTE | 2025-08-13 18:45 | NUR ---
PT VERY AGITATED,ASKING FOR MEDICATION FOR ANXIETY. HE WAS ESCORTED BACK INTO BED.GAVE US PERMISSION TO PUT AN IV IN THEN ALLOWED HE MEDS TO BE ADMINISTERED, WHICH HELPED HIM TO BE MORE SETTLED.
--- NOTE | 2025-08-13 18:45 | ERN ---
ED Note History of Present Illness Stated Complaint: MULTIPLE COMPLAINTS Chief Complaint: Multiple Complaints Time Seen by MD: 18:27 Dictation: PATIENT IS A 70-YEAR-OLD MALE COMING IN WITH MULTIPLE COMPLAINTS TO INCLUDE A GENERALIZED HEADACHE FOR THE LAST 24 HOURS. HE ALSO STATES HE HAS BEEN HAVING NAUSEA VOMITING INTERMITTENTLY FOR THE LAST SEVERAL DAYS. THIRD COMPLAINT IS HE HAS NON TRAUMA RIGHT KNEE PAIN HE HAS HAD OFF AND ON FOR ONE WEEK AFTER TWISTING IT WALKING. HE STATES HE HAS ALREADY BEEN SEEN AT [facility] FOR THIS HAD AN X-RAY DONE HOWEVER HIS DOCTOR HAS NOT SENT HIM TO SEE AN ORTHOPEDIC SURGEON. THE FINAL COMPLAINT IS HE NEEDS A SHOT FOR ANXIETY BECAUSE HE FEELS LIKE HE WANTS TO RUN. Allergies: Coded Allergies: No Known Drug Allergies (Verified Allergy, Unknown, 03/17/19) Home Meds Active Scripts Omeprazole (Omeprazole) 20 Mg Capsule.dr, 20 MG PO DAILY for 30 Days, #30 CAP 0 Refills Prov:MARILYNN BHANDARI MD 01/31/22 Apixaban (Eliquis) 5 Mg Tablet, 5 MG PO BID for 7 Days, #14 TAB 0 Refills Prov:MARILYNN BHANDARI MD 01/31/22 Thiamine HCl (Vitamin B-1) 100 Mg Tablet, 100 MG PO DAILY for 30 Days, #30 TAB Prov:NYDIA STAFFORD Jr., MD 12/02/19 Magnesium Oxide (Mag-Ox) 400 Mg Tab, 800 MG PO DAILY for 30 Days, #30 TAB Prov:NYDIA STAFFORD Jr., MD 12/02/19 Lactulose (Cephulac/Enulose Soln) 20 Gm/30 Ml Soln, 30 GM PO TID for 30 Days, #4050 ML Prov:NYDIA STAFFORD Jr., MD 10/07/19 Reported Medications Paroxetine HCl (Paroxetine HCl) 10 Mg Tablet, 10 MG PO DAILY, TAB 01/31/22 Glipizide (Glipizide) 5 Gm Powder, 2.5 GM MC DAILY, APPL 01/31/22 Metformin HCl (Metformin HCl ER) 1,000 Mg Tab.er.24, 1000 MG PO BID 01/31/22 Metoprolol Tartrate (Metoprolol Tartrate) 100 Mg Tablet, 100 MG PO DAILY, TAB 01/31/22 Past Medical History Past Medical History: Diabetes-Type II, High Cholesterol, Heart Disease, Hypertension, Liver Disease Surgical History: Other Surgical History Other: RT FOOT SX Social History: Other RN Note Reviewed/Agreed w/PFSH: Yes Review of System Dictation CONSTITUTIONAL: NEGATIVE EXCEPT FOR HPI HEAD/FACE: NEGATIVE EXCEPT FOR HPI EENT: NEGATIVE EXCEPT FOR HPI RESPIRATORY: NEGATIVE EXCEPT FOR HPI GASTROINTESTINAL/ABDOMINAL: NEGATIVE EXCEPT FOR HPI NAUSEA VOMITING GENITOURINARY: NEGATIVE EXCEPT FOR HPI MUSCULOSKELETAL: NEGATIVE EXCEPT FOR HPI RIGHT KNEE PAIN INTEGUMENTARY: NEGATIVE EXCEPT FOR HPI NEUROLOGICAL/PSYCH: NEGATIVE EXCEPT FOR HPI GENERALIZED HEADACHE HEMATOLOGIC/LYMPHATIC: NEGATIVE EXCEPT FOR HPI ALL SYSTEMS NEGATIVE, EXCEPT NOTED ABOVE. 13 POINT REVIEW OF SYSTEMS ASSESSED AND ALL NEGATIVE EXCEPT FOR ABOVE. Initial Vital Sign VS Vital Signs Date Time Temp Pulse Resp B/P (MAP) Pulse Ox O2 Delivery O2 Flow Rate FiO2 08/13/25 18:23 97.2 70 18 172/93 100 Room Air 0 08/13/25 19:00 21 Physical Exam Dictation VITAL SIGNS REVIEWED GENERAL APPEARANCE: ALERT, ORIENTED X 3, MILD ACUTE DISTRESS, WELL DEVELOPED, NOURISHED. HEAD AND FACE: NON-TRAUMATIC. EYES: PERRL, PINK CONJUNCTIVAS, EYELID NO TRAUMA, ANTERIOR CHAMBER WITH ARCUS SENILIS. EARS: PINNAS INTACT AND NO SIGNS OF TRAUMA OR ERYTHEMA EAR CANALS CLEAR AND NO DISCHARGE TM NO ERYTHEMA NOSE: NO DISCHARGE, NO BLEEDING. OROPHARYNX: MOUTH NORMAL, TONGUE PINK, PHARYNX CLEAR,NO ERYTHEMA, TONSILS NO EXUDATES, NO ABSCESSES NOTED, MUCOUS MEMBRANE MOIST NECK: SUPPLE, NON-TENDER, NO THYROMEGALY, NO MASSES, NO JVD, NO BRUITS BREAST:DEFERRED CHEST:NO TENDERNESS, NO CREPITUS, NO PARADOXICAL MOVEMENT, NO RETRACTIONS LUNGS:CLEAR, WELL-VENTILATED, SYMMETRIC, NO RALES, NO WHEEZING, NO RHONCHI, NO STRIDOR, GOOD BREATH SOUNDS BILATERALLY HEART: REGULAR RATE, REGULAR RHYTHM, NO MURMUR, NO GALLOPS VASCULAR: NO PERIPHERAL EDEMA, ABDOMEN: SOFT, POSITIVE BOWEL SOUNDS, NONDISTENDED, NO GUARDING, NONTENDER, NO REBOUND, NO MASSES NO HEPATOMEGALY, NO SPLENOMEGALY, NO DIAMOND'S SIGN, NO HERNIAS. RECTAL: DEFERRED GENITAL: DEFERRED NEUROLOGICAL: NORMAL SPEECH, MOTOR FUNCTION INTACT, SENSORY FUNCTION INTACT NIH IS 0 MUSCULOSKELETAL: NECK NONTENDER, FULL RANGE OF MOTION, BACK NONTENDER, FULL RANGE OF MOTION, EXTREMITIES: DIFFUSE TENDERNESS TO RIGHT KNEE WITHOUT SWELLING ERYTHEMA. NO CREPITATION WITH RANGE OF MOTION. SKIN: COLOR PINK, DRY, NO TURGOR, NO RASH, NO LACERATIONS, NO ABRASIONS, NO CONTUSIONS. LYMPHATIC: DEFERRED Results (Laboratory/Radiology) Laboratory/Radiology Laboratory Tests Test 08/13/25 18:59 White Blood Count 12.9 K/uL (4.8-10.8) H Red Blood Count 3.52 MIL/uL (4.50-6.20) L Hemoglobin 11.7 g/dL (14.0-18.0) L Hematocrit 32.3 % (42-54) L Mean Corpuscular Volume 91.8 fL (79-99) Mean Corpuscular Hemoglobin 33.2 pg (27.0-33.0) H Mean Corpuscular Hemoglobin Concent 36.2 g/dL (32.0-36.0) H Red Cell Distribution Width 12.3 % (11.0-15.5) Platelet Count 185 K/uL (130-400) Mean Platelet Volume 8.2 fL (7.5-10.5) Immature Granulocyte % (Auto) 0.2 % (0-1) Neutrophils (%) (Auto) 55.4 % (40.0-77.0) Lymphocytes (%) (Auto) 40.1 % (21.0-51.0) Monocytes (%) (Auto) 3.7 % (3.0-13.0) Eosinophils (%) (Auto) 0.2 % (0.0-8.0) Basophils (%) (Auto) 0.4 % (0.0-5.0) Neutrophils # (Auto) 7.2 K/uL (1.8-7.7) Lymphocytes # (Auto) 5.2 K/uL (1.0-4.8) H Monocytes # (Auto) 0.5 K/uL (0.1-1.0) Eosinophils # (Auto) 0.02 K/uL (0.00-0.70) Basophils # (Auto) 0.05 K/uL (0.00-0.20) Absolute Immature Granulocyte (auto 0.03 K/uL (0-1) Nucleated Red Blood Cells 0.0 % (0.0-0.19) Red Blood Cell Morphology See comments Sodium Level 121 mmol/L (136-145) L Potassium Level 4.6 mmol/L (3.5-5.1) Chloride Level 90 mmol/L (101-111) *L Carbon Dioxide Level 26 mmol/L (21-32) Blood Urea Nitrogen 10 mg/dL (7-18) Creatinine 0.8 mg/dL (0.5-1.3) Glomerular Filtration Rate Calc 96 mL/min (>90) Random Glucose 167 mg/dL (70-105) H Total Calcium 8.2 mg/dL (8.5-10.1) L Lipase 64 U/L (16-77) 1942/RIGHT KNEE X-RAY DEMONSTRATES DEGENERATIVE CHANGES ONLY BONES ARE INTACT Labs Reviewed?: Yes ED Course ED Course Orders Procedure Category Date Status Time Knee 3vws Rt RAD 08/13/25 Taken 18:37 Dexamethasone 4mg/Ml PHA 08/13/25 Complete 1ml Vial (Dexametha 19:00 Ketorolac PHA 08/13/25 Complete Tromethamine 30mg/Ml 19:00 Cbc With Differential LAB 08/13/25 In Process 18:37 Urinalysis Profile LAB 08/13/25 Logged 18:37 0.9%Nacl 1000ml (Ns PHA 08/13/25 Complete 1000ml) 19:00 Ondansetron 4mg Inj PHA 08/13/25 Complete (Zofran 4mg Inj) 19:00 Lipase LAB 08/13/25 Complete 18:37 Basic Metabolic Panel LAB 08/13/25 Complete 18:37 Current Medications Medications (Trade) Dose Ordered Sig/Herminio Route PRN Reason Start Time Stop Time Status Last Admin Dose Admin Dexamethasone Sodium Phosphate (dexaMETHasone 4MG/ML 1ML VIAL) 8 mg ONCE ONCE IV 08/13/25 19:00 08/13/25 19:01 DC 08/13/25 18:54 Ketorolac Tromethamine (toRADol) 30 mg ONCE ONCE IVP 08/13/25 19:00 08/13/25 19:01 DC 08/13/25 18:54 Ondansetron HCl (zoFRAN 4MG INJ) 4 mg ONCE ONCE IVP 08/13/25 19:00 08/13/25 19:01 DC 08/13/25 18:53 Sodium Chloride 1,000 ml @ 0 mls/hr ONCE ONCE IV 08/13/25 19:00 08/13/25 19:01 DC 08/13/25 18:54 Vital Signs Date Time Temp Pulse Resp B/P (MAP) Pulse Ox O2 Delivery O2 Flow Rate FiO2 08/13/25 19:21 98.1 80 17 168/96 99 Room Air* 0 21 08/13/25 19:00 97.2 82 18 174/90 99 Room Air* 0 21 08/13/25 18:23 97.2 70 18 172/93 100 Room Air 0 1940/SPOKE TO PATIENT IN HIS AT BEDSIDE REGARDING THE LAB FINDINGS TO INCLUDE HYPONATREMIA AND DEHYDRATION. I STRONGLY ADVISED HIM TO BE STAYING IN THE HOSPITAL FOR REHYDRATION AND SODIUM STABILIZATION. HE SAID I DO NOT WANT TO STAY IN THE HOSPITAL AND I WE WILL SEE MY DOCTOR IN THE NEXT 1-2 DAYS. AGAIN I ADVISED HIM THAT IV HYDRATION AND SODIUM REPLACEMENT WE WILL BE BEST HOWEVER HE REFUSED. Medical Decision Making MDM MDM: DIFFERENTIAL DIAGNOSIS: ACUTE HEADACHE/ELECTROLYTE IMBALANCE/DEHYDRATION/GASTROENTERITIS/ RATIONALE: TESTS CONSIDERED AND ORDERED SECONDARY TO SHARED DECISION MAKING I NCLUDE: LABS/RIGHT KNEE X-RAY PREVIOUS OUTSIDE RECORDS REVIEWED: OLD ER VISITS. RISK OF COMPLICATION AND/OR MORBIDITY OR MORTALITY OF PATIENT MANAGEMENT: NONE MEDICATIONS-PER MEDICATION RECONCILIATION NEED FOR HOSPITALIZATION: PATIENT DOES NOT MEET CRITERIA FOR HOSPITALIZATION. PATIENT REFUSED ADMISSION AT THIS TIME. NEED FOR EMERGENCY MAJOR/MINOR SURGERY: NO THERE ARE NO SOCIAL CONCERNS WITH THIS PATIENT. PRESCRIPTION DRUG MANAGEMENT KETOROLAC/ZOFRAN PRESCRIPTIONS WILL INCLUDE SYMPTOMATIC CARE PATIENT'S PRIOR EXTERNAL MEDICAL RECORDS FROM OTHER ER VISITS WERE REVIEWED BY ME INDICATED. PRIOR TESTING AND RESULTS FROM PREVIOUS VISITS WERE REVIEWED. PRIOR TESTS WERE TAKEN INTO ACCOUNT WITH MEDICAL DECISION MAKING AND RESOURCE UTILIZATION, INDEPENDENT HISTORIAN/HISTORIANS WERE USED TO OBTAIN COMPLETE MEDICAL HISTORY. I INDEPENDENTLY INTERPRETED THE TEST THAT WERE PERFORMED, RESULTS WERE REVIEWED BY ME AND CONSIDERED FINDINGS ON RADIOLOGY IF ORDERED. MEDICAL MANAGEMENT AND EXAMINATION INTERPRETATION DISCUSSIONS WERE HAD BY ME WITH OTHER QUALIFIED HEALTHCARE PROFESSIONALS INDICATED FOR THE PATIENT'S CARE. DX & DISP Disposition: Discharge Departure Impression: Primary Impression: Hyponatremia Additional Impressions: Dehydration, Diabetes mellitus with hyperglycemia, Arthralgia of right knee, Acute headache, Hypocalcemia, Nausea & vomiting Condition: Stable Scripts Ondansetron (Ondansetron Odt) 4 Mg Tab.rapdis 4 MG PO Q6HPRN PRN for nausea, #16 TAB 0 Refills Prov: SERA LEMUS COMPUTER EDUCATION TEACHER 08/13/25 Ketorolac Tromethamine (Ketorolac Tromethamine) 10 Mg Tablet 10 MG PO Q6HPRN for KNEE PAIN, #30 TAB Prov: SERA LEMUS 08/13/25 Additional Instructions: FOLLOW-UP WITH PRIMARY CARE PROVIDER IN 1 TO 2 DAYS. TAKE MEDICATIONS DIRECTED HERE IN THE EMERGENCY ROOM. OKAY TO CONTINUE HOME MEDICATIONS UNLESS OTHERWISE DISCUSSED DURING YOUR VISIT IN THE EMERGENCY ROOM TODAY. RETURN TO YOUR NEAREST EMERGENCY ROOM IF SYMPTOMS WORSEN OR IF THERE IS NO IMPROVEMENT. CALL 911 IF YOU NEED IMMEDIATE ASSISTANCE. TAKE TYLENOL OR MOTRIN [id number] NEEDED AND IF NO CONTRAINDICATIONS ARE PRESENT. INCREASE ORAL HYDRATION. A WOUND CULTURE OR URINE CULTURE WAS ORDERED HERE IN THE EMERGENCY ROOM DEPARTMENT PLEASE FOLLOW-UP WITH PRIMARY CARE PROVIDER AND ADVISE THEM TO GET REPEAT PORTS FROM OUR FACILITY. IF YOU HAD ANY REENA WRAP/SPLINTS THAT WERE APPLIED HERE, PLEASE DO NOT REMOVE THEM UNTIL YOU SEE YOUR PRIMARY CARE OR SPECIALTY. TAKE KETOROLAC DIRECTED EVERY 6-8 HOURS WITH FOOD FOR PAIN TO YOUR KNEE AND HEADACHE. INCREASE YOUR WATER INTAKE. WARM COMPRESSES TO YOUR RIGHT KNEE THREE TO 4 TIMES A DAY. SEE YOUR PRIMARY CARE DOCTOR ON THURSDAY OR THURSDAY FOR FOLLOW UP AND MANAGEMENT Referrals: ROSALBA WHALEN (PCP) Time of Disposition: 19:45 I have reviewed the case, and I agree with, Diagnosis and Plan SERA LEMUS Aug 13, 2025 18:45
[2025-08-13] MEDS: 0.9%NACL 1000ML 1,000 ML IV ONE (18:54)
--- NOTE | 2025-08-13 19:11 | NUR ---
PT CARE ASSUMED AT THIS TIME
[2025-08-13 19:18] LABS: IMMATURE GRANULOCYTE ABSOLUTE 0.03 K/uL (0-1); NUCLEATED RED BLOOD CELLS 0.0 % (0.0-0.19); PLATELET COUNT (AUTO) 185 K/uL (130-400); RED BLOOD CELL COUNT(AUTO) 3.52 MIL/uL (4.50-6.20); RED CELL DISTRIBUTION WIDTH 12.3 % (11.0-15.5); WHITE BLOOD COUNT (AUTO) 12.9 K/uL (4.8-10.8)
[2025-08-13 19:22] LABS: CREATININE 0.8 mg/dL (0.5-1.3); GLOMERULAR FILTR. RATE CALC 96.0 mL/min (>90); GLUCOSE,RANDOM 167.0 mg/dL (70-105); SODIUM SERUM 121.0 mmol/L (136-145); UREA NITROGEN, BLOOD 10.0 mg/dL (7-18)
[2025-08-13] MEDS ORDERED: KETO10TA2 PO (19:46)
[2025-08-13] MEDS ORDERED: ONDA-243 PO (19:46)
[2025-08-13 20:03] VITALS: BP 158/67; PULSE 76; RESP 16; TEMP 98; O2SAT 99
--- NOTE | 2025-08-13 20:34 | HMCIMG ---
EXAM: CR Right Knee, 3 views CLINICAL HISTORY: Pain. COMPARISON: None provided. FINDINGS: No acute fracture or aggressive appearing osseous lesion. Mild osteopenia. Mild tricompartmental knee joint osteoarthritis. No suprapatellar effusion. Atherosclerotic vascular calcifications. IMPRESSION: No acute bony abnormality is evident. Mild osteopenia. Mild osteoarthritis. /[place]
== END 2025-08-13 20:18 | disposition home or self-care (01) ==
LOC: EDH 18:21
DX: E87.1 Hypo-osmolality and hyponatremia (principal); E86.0 Dehydration; E11.65 Type 2 diabetes mellitus with hyperglycemia; M25.561 Pain in right knee; R51.9 Headache, unspecified; E83.51 Hypocalcemia; R11.2 Nausea with vomiting, unspecified; I11.9 Hypertensive heart disease without heart failure; E78.00 Pure hypercholesterolemia, unspecified; Z79.899 Other long term (current) drug therapy; Z79.84 Long term (current) use of oral hypoglycemic drugs; Z79.01 Long term (current) use of anticoagulants; X50.1XXA Overexertion from prolonged static or awkward postures, initial encounter; Y93.01 Activity, walking, marching and hiking; Y92.89 Other specified places as the place of occurrence of the external cause; Y99.8 Other external cause status
CPT/HCPCS: 99284; 96374; 96375; 96361; 80048; 83690; 85025; 36415; 73562; J1100; J1885; J7030; J2405